=== PATIENT | female | born 1930 | race Caucasian/White ===

== ENCOUNTER 2018-07-30 07:16 | Inpatient (IN) | payer MEDICARE ==
[~2018-07-30] VITALS: Ht 162.6 cm; Wt 59.0 kg
[~2018-07-30 07:16] MED LIST: ALPRAZOLAM0.25 M1 PO; COREG12.5 MG PO; FUROSEMIDE40 MG PO; HYDRALAZINE HCL10 MG PO; ISOSORBIDE MONO20 MG PO; NITROFURANTOIN100 MG PO; RANITIDINE HCL75 MG PO; SYNTHROID75 MCG PO; TORSEMIDE20 MG PO
--- OUTSIDE RECORDS SUMMARY | 2018-07-30 07:18 | XMS REPORT | Clinical Summary ---
Author Author [facility] Address Unknown Phone Unavailable Care Team Providers Care Paper Folder Name Role Phone Jazmin Wood MD PCP Allergies Comments Active Allergy Reactions Severity Noted Date Meperidine 01/26/2017 Morphine 01/26/2017 Medications End Date Status Medication Sig Dispensed Refills Start Date Active carvedilol CR (COREG CR) Take 40 mg by 0 40 MG 24 hr capsule mouth every morning. Active hydrALAZINE (APRESOLINE) Take 10 mg by 0 10 MG tablet mouth 2 (two) times a day. Active levothyroxine (SYNTHROID, Take 75 mcg 0 LEVOXYL) 75 mcg tablet by mouth every morning. Active potassium chloride Take 10 mEq 0 (K-DUR,KLOR-CON) 10 MEQ by mouth CR tablet every morning. Active losartan (COZAAR) 50 MG Take 25 mg by 0 tablet mouth every morning. Active torsemide (DEMADEX) 20 MG Take 20 mg by 0 tablet mouth daily. Active aspirin (ECOTRIN) 81 MG Take 81 mg by 0 enteric coated tablet mouth daily. Active isosorbide mononitrate Take 10 mg by 0 (ISMO,MONOKET) 10 MG mouth 2 (two) tablet times a day. Active ranitidine (ZANTAC) 150 Take 150 mg 0 MG tablet by mouth nightly. Active traZODone (DESYREL) 50 MG Take 50 mg by 0 tablet mouth nightly. Active sertraline (ZOLOFT) 25 MG Take 25 mg by 0 tablet mouth nightly. Active levoFLOXacin (LEVAQUIN) Take 250 mg 0 250 MG tablet by mouth 9 daily. For 10 days Active atorvastatin (LIPITOR) 20 Take 20 mg by 0 MG tablet mouth nightly. Default OP ins Active benzonatate (TESSALON) Take 100 mg 0 100 MG capsule by mouth 3 (three) times a day as needed for cough. Active brompheniramine/pseudoeph Take 10 mL by 0 ed/DM (BROMFED DM ORAL) mouth daily as needed. 08/09/2018 Active ipratropium-albuterol Take 3 mL by 0 (DUO-NEB) 0.5-2.5 mg/mL nebulization 9 nebulizer every 4 (four) hours as needed for wheezing or shortness of breath for up to 30 days. 08/09/2018 Active furosemide (LASIX) 20 mg Take 2 0 tablet tablets (40 9 mg total) by mouth daily for 30 days. 08/09/2018 Active melatonin 3 mg tablet Take 1 tablet 0 (3 mg total) 9 by mouth nightly for 30 days. 04/03/2018 Discontinued isosorbide mononitrate Take 10 mg by 0 (ISMO,MONOKET) 10 MG mouth daily. tablet 11/02/2017 Discontinued torsemide (DEMADEX) 20 MG Take 20 mg by 0 tablet mouth daily. 07/10/2018 Discontinued furosemide (LASIX) 20 mg Take 20 mg by 0 tablet mouth daily as needed. 12/02/2017 acetaminophen (TYLENOL) Take 2 0 325 MG tablet tablets (650 8 mg total) by mouth every 6 (six) hours as needed for moderate pain for up to 30 days. 12/02/2017 atorvastatin (LIPITOR) 20 Take 1 tablet 30 tablet 0 201 MG tablet (20 mg total) 8 by mouth nightly for 30 days. Default OP ins 12/03/2017 losartan (COZAAR) 25 MG Take 1 tablet 30 tablet 0 tablet (25 mg total) 8 by mouth daily for 30 days. 12/02/2017 famotidine (PEPCID) 20 MG Take 1 tablet 30 tablet 0 tablet (20 mg total) 8 by mouth nightly for 30 days. 12/02/2017 sennosides-docusate Take 1 tablet 0 sodium (SENOKOT-S) 8.6-50 by mouth 2 8 mg per tablet (two) times a day as needed for constipation for up to 30 days. 12/03/2017 furosemide (LASIX) 40 mg Take 1 tablet 30 tablet 0 tablet (40 mg total) 8 by mouth daily for 30 days. 12/03/2017 aspirin (ECOTRIN) 81 MG Take 1 tablet 30 tablet 0 enteric coated tablet (81 mg total) 8 by mouth daily for 30 days. 12/02/2017 traZODone (DESYREL) 50 MG Take 1 tablet 30 tablet 0 tablet (50 mg total) 8 by mouth nightly for 30 days. 11/09/2017 levoFLOXacin (LEVAQUIN) Take 0.5 0 500 MG tablet tablets (250 8 mg total) by mouth daily for 7 days. 07/15/2018 levoFLOXacin (LEVAQUIN) Take 1 tablet 0 250 MG tablet (250 mg 9 total) by mouth daily for 5 days. Active Problems Problem Noted Date CHF (congestive heart failure) 07/08/2018 CHF exacerbation 07/06/2018 Ischemic stroke 10/30/2017 Encounters Care Team Description Date Type Specialty Willard Rodriguez MD Yerramadha, Muralidhar Reddy, MD Acute on chronic congestive heart failure, unspecified heart failure type (HCC) (Primary Dx); Acute bronchitis due to other specified organisms; Pneumonia of right middle lobe due to infectious organism (HCC); Essential hypertension, benign; CKD (chronic kidney disease) stage 3, GFR 30-59 ml/min (HCC); Ischemic stroke (HCC) 07/06/2018 [facility] General Surgery - Encounter 07/10/2018 07/06/2018 Travel Shan Woodson MD Primary osteoarthritis of both knees (Primary Dx) 04/03/2018 Office Visit Orthopedic Surgery Martha Rea MA Pain in both knees, unspecified chronicity (Primary Dx) 04/03/2018 Orders Only Orthopedic Surgery Shan Woodson MD Primary osteoarthritis of both knees (Primary Dx) 11/23/2017 Office Visit Orthopedic Surgery Abraham Saxena MD Yerramadha, Muralidhar Reddy, MD Ischemic stroke (Primary Dx); Altered mental status, unspecified altered mental status type; UTI (urinary tract infection), bacterial 10/30/2017 [facility] General Internal Medicine - Encounter 11/02/2017 Shan Woodson MD Primary osteoarthritis of both knees (Primary Dx) 09/21/2017 Office Visit Orthopedic Surgery Martha Rea MA Pain of left hip joint (Primary Dx) 09/20/2017 Orders Only Orthopedic Surgery after 07/29/2017 Family History Medical History Relation Name Comments Cancer Father Heart disease Father Stroke Father Relation Name Status Comments Father Social History Date Tobacco Use Types Packs/Day Years Used Never Smoker Smokeless Tobacco: Never Used Alcohol Use Drinks/Week oz/Week Comments No Alcohol Habits Answer Date Recorded How often do you have a drink containing alcohol? Never 07/06/2018 How many drinks containing alcohol do you have on Not asked a typical day when you are drinking? How often do you have six or more drinks on one Not asked occasion? Sex Assigned at Date Recorded Not on file Industry Job Start Date Occupation Not on file Not on file Not on file Travel End Travel History Travel Start No recent travel history available. Last Filed Vital Signs Time Taken Vital Sign Reading 07/10/2018 11:39 AM [employer] Blood Pressure 153/68 07/10/2018 11:39 AM [employer]CH[employer]IC Pulse 66 07/10/2018 11:39 AM [employer] TE[employer]ACHINE MECH[employer]IC Temperature 36.8 C (98.2 F) 07/10/2018 11:39 AM [employer] TE[employer]ACHINE [employer]CH[employer]IC Respiratory Rate 18 07/10/2018 11:39 AM [employer] TE[employer]ACHINE MECH[employer]IC Oxygen Saturation 97% - Inhaled Oxygen - Concentration 07/06/2018 2:13 PM [employer] TE[employer]CH[employer]IC Weight 54.4 kg (120 lb) 07/06/2018 2:13 PM [employer] TE[employer]INE [employer]CH[employer] Height 162.6 cm (5' 4") 07/06/2018 2:13 PM [employer]CH[employer]IC Body Mass Index 20.6 Plan of Treatment Care Team Description Date Type Specialty Shan Woodson MD [address] [facility] [address] [place], [place] [id number] 08/05/2018 Office Visit Orthopedic Surgery Health Maintenance Due Date Last Done Comments SHINGLES VACCINES (1 of 1980 2) PNEUMOCOCCAL 10/03/1995 POLYSACCHARIDE VACCINE AGE 65 AND OVER PNEUMOCOCCAL-13 10/03/1995 INFLUENZA VACCINE 01/09/2018 Procedures Comments Procedure Name Priority Date/Time Associated Diagnosis POC GLUCOSE Routine 07/10/2018 12:02 PM [employer] POC GLUCOSE Routine 07/10/2018 6:39 AM B[employer] TELL[employer]INE MECH[employer]IC ESTIMATED GFR Routine 07/10/2018 4:51 AM [employer] TE[employer] MECH[employer]IC BASIC METABOLIC PANEL Routine 07/10/2018 4:51 AM [employer] TE[employer]INE MECH[employer]IC POC GLUCOSE Routine 07/09/2018 8:37 PM [employer] TE[employer]ACHINE MECH[employer]IC POC GLUCOSE Routine 07/09/2018 4:56 PM B[employer] TE[employer]ACHINE MECH[employer]IC POC GLUCOSE Routine 07/09/2018 11:33 AM B[employer] TELL[employer] MACHINE MECHANIC ESTIMATED GFR Routine 07/09/2018 6:15 AM [employer] TE[employer]ACHINE MECH[employer]IC MAGNESIUM LEVEL Routine 07/09/2018 6:15 AM [employer] TE[employer]ACHINE MECH[employer]IC BASIC METABOLIC PANEL Routine 07/09/2018 6:15 AM B[employer] TELL[employer]ACHINE MECHANIC POC GLUCOSE Routine 07/09/2018 6:11 AM B[employer] TELL[employer] MACHINE MECHANIC POC GLUCOSE Routine 07/08/2018 9:03 PM [employer] TE[employer]ACH[employer] MECH[employer]IC ARTERIAL BLOOD GAS Routine 07/08/2018 8:45 PM [employer] TE[employer]ACHINE MECH[employer]IC XR CHEST 1 VW PORTABLE Routine 07/08/2018 8:41 PM [employer] TE[employer]ACHINE MECH[employer]IC POC GLUCOSE Routine 07/08/2018 6:19 PM [employer] TE[employer]ACHINE MECH[employer]IC ESTIMATED GFR Routine 07/08/2018 6:00 AM B[employer] TELL[employer] MACHINE MECHANIC BASIC METABOLIC PANEL Routine 07/08/2018 6:00 AM [employer] TE[employer]ACHINE MECHANIC PHOSPHORUS LEVEL Routine 07/08/2018 6:00 AM [employer] TELL[employer]ACHINE MECHANIC MAGNESIUM LEVEL Routine 07/08/2018 6:00 AM [employer] TELLER MACHINE MECHANIC CREATINE KINASE, TOTAL Routine 07/08/2018 (CPK) 6:00 AM BANK TELL[employer]ACHINE MECHANIC HC COMPLETE BLD COUNT Routine 07/08/2018 W/AUTO DIFF 6:00 AM [employer] TELL[employer]ACHINE MECH[employer]IC PROTEIN, URINE, RANDOM Routine 07/08/2018 4:30 AM BANK TELL[employer] MACHINE MECHANIC CREATININE LEVEL, URINE, Routine 07/08/2018 RANDOM 4:30 AM BANK TELL[employer]ACHINE MECHANIC SODIUM LEVEL, URINE, Routine 07/08/2018 RANDOM 4:30 AM [employer] TE[employer]ACHINE MECHANIC URINALYSIS SCREEN AND Routine 07/08/2018 MICROSCOPY, WITH REFLEX 4:30 AM BANK TELL[employer]ACHINE MECHANIC TO CULTURE URINE CULTURE Routine 07/08/2018 4:30 AM [employer]ANK TELL[employer]ACHINE MECHANIC ECHOCARDIOGRAM 2D Routine 07/07/2018 COMPLETE W MMODE SPECTRAL 3:05 PM [employer]ANK TELL[employer]ACH[employer] MECHANIC COLOR DOPPLER (24335) TROPONIN Routine 07/07/2018 6:51 AM BANK TELLER MACHINE MECHANIC ESTIMATED GFR Routine 07/07/2018 6:51 AM B[employer] TELL[employer]ACHINE MECHANIC BASIC METABOLIC PANEL Routine 07/07/2018 6:51 AM B[employer] TE[employer]ACHINE MECHANIC HC COMPLETE BLD COUNT Routine 07/07/2018 W/AUTO DIFF 6:51 AM B[employer] TE[employer]ACHINE MECH[employer]IC TROPONIN Timed 07/07/2018 2:45 AM [employer] TE[employer]INE MECH[employer]IC TROPONIN Timed 07/06/2018 10:25 PM [employer] TE[employer] MECH[employer]IC TROPONIN Timed 07/06/2018 6:34 PM B[employer] TE[employer] CT HEAD WO CONTRAST STAT 07/06/2018 4:29 PM BANK TELLER MACHINE MECHANIC XR CHEST 1 VW PORTABLE STAT 07/06/2018 3:05 PM BANK TELL[employer] MACHINE MECHANIC CREATINE KINASE, TOTAL STAT 07/06/2018 (CPK) 2:30 PM BANK TELLER MACHINE MECHANIC ESTIMATED GFR STAT 07/06/2018 2:30 PM BANK TELLER MACHINE MECHANIC B NATRIURETIC PEPTIDE STAT 07/06/2018 2:30 PM BANK TELLER MACHINE MECHANIC TROPONIN STAT 07/06/2018 2:30 PM [employer]ANK TELL[employer]ACH[employer] MECH[employer]IC COMPREHENSIVE METABOLIC STAT 07/06/2018 PANEL 2:30 PM [employer]ANK TELL[employer]ACH[employer] MECHANIC PARTIAL THROMBOPLASTIN STAT 07/06/2018 TIME (PTT) 2:30 PM [employer]ANK TELL[employer] MECH[employer]IC PROTHROMBIN TIME WITH INR STAT 07/06/2018 2:30 PM B[employer] TELL[employer]ACHINE MECHANIC HC COMPLETE BLD COUNT STAT 07/06/2018 W/AUTO DIFF 2:30 PM BANK TE[employer]ACHINE MECH[employer]IC ECG 12-LEAD STAT 07/06/2018 2:26 PM B[employer] TE[employer] MECH[employer]IC ECG ED PRELIMINARY Routine 07/06/2018 INTERPRETATION 2:15 PM [employer] TELL[employer]ACHINE MECH[employer]IC XR KNEE 3 VW BILATERAL Routine 04/03/2018 Pain in both knees, 4:08 PM CDT unspecified chronicity MS ARTHROCENTESIS Routine 04/03/2018 Primary osteoarthritis of ASPIR&/INJ MAJOR JT/BURSA 3:30 PM CDT both knees W/O US MS ARTHROCENTESIS Routine 11/23/2017 Primary osteoarthritis of ASPIR&/INJ MAJOR JT/BURSA 3:45 PM CDT both knees W/O US POC GLUCOSE Routine 11/02/2017 4:22 PM CDT POC GLUCOSE Routine 11/02/2017 11:39 AM CDT POC GLUCOSE Routine 11/02/2017 5:49 AM CDT MAGNESIUM LEVEL Routine 11/02/2017 5:05 AM CDT LIPID PANEL Routine 11/02/2017 4:45 AM CDT POC GLUCOSE Routine 11/01/2017 8:06 PM CDT POC GLUCOSE Routine 11/01/2017 4:30 PM CDT POC GLUCOSE Routine 11/01/2017 12:26 PM CDT POC GLUCOSE Routine 11/01/2017 5:47 AM CDT ZZESTIMATED GFR Routine 11/01/2017 4:45 AM CDT HC COMPLETE BLD COUNT Routine 11/01/2017 W/AUTO DIFF 4:45 AM CDT BASIC METABOLIC PANEL Routine 11/01/2017 4:45 AM CDT POC GLUCOSE Routine 10/31/2017 8:11 PM CDT POC GLUCOSE Routine 10/31/2017 4:56 PM CDT POC GLUCOSE Routine 10/31/2017 11:51 AM CDT ECHOCARDIOGRAM WITH Routine 10/31/2017 AGITATED SALINE (37145) 11:00 AM CDT US CAROTID DUPLEX Routine 10/31/2017 BILATERAL 7:40 AM CDT POC GLUCOSE Routine 10/31/2017 5:38 AM CDT VITAMIN B12 LEVEL Routine 10/31/2017 4:57 AM CDT ZZESTIMATED GFR Routine 10/31/2017 4:57 AM CDT BASIC METABOLIC PANEL Routine 10/31/2017 4:57 AM CDT HC COMPLETE BLD COUNT Routine 10/31/2017 W/AUTO DIFF 4:57 AM CDT POC GLUCOSE Routine 10/30/2017 9:59 PM CDT BLOOD CULTURE, AEROBIC & Routine 10/30/2017 ANAEROBIC 8:50 PM CDT BLOOD CULTURE, AEROBIC & Routine 10/30/2017 ANAEROBIC 8:45 PM CDT URINALYSIS SCREEN AND STAT 10/30/2017 MICROSCOPY, WITH REFLEX 3:40 PM CDT TO CULTURE GRAM STAIN STAT 10/30/2017 3:40 PM CDT URINE CULTURE STAT 10/30/2017 3:40 PM CDT ZZESTIMATED GFR STAT 10/30/2017 3:20 PM CDT B NATRIURETIC PEPTIDE STAT 10/30/2017 3:20 PM CDT TROPONIN STAT 10/30/2017 3:20 PM CDT CREATINE KINASE, TOTAL STAT 10/30/2017 (CPK) 3:20 PM CDT COMPREHENSIVE METABOLIC STAT 10/30/2017 PANEL 3:20 PM CDT HC COMPLETE BLD COUNT STAT 10/30/2017 W/AUTO DIFF 3:[address] HEAD WO CONTRAST STAT 10/30/2017 2:55 PM CDT XR CHEST 1 VW PORTABLE STAT 10/30/2017 2:27 PM CDT ECG ED PRELIMINARY Routine 10/30/2017 INTERPRETATION 2:09 PM CDT ECG 12-LEAD STAT 10/30/2017 1:52 PM CDT XR HIP 2-3 VIEWS LEFT Routine 09/21/2017 Pain of left hip joint 2:42 PM CDT after 07/29/2017 Results * POC glucose (07/10/2018 12:02 PM BANK TELL[employer]ACHINE MECHANIC) Only the most recent of 20 results within the time period is included. POC glucose 172 (H) 65 - 99 mg/dL [facility] Comment: [facility] Meter ID: [id number] [employer] Smelter: Kyle Coto Performing Organization Address City/State/Zipcode [place] [address] [place] [address] PATHOLOGY AND GENOMIC MEDICINE [facility] [address] [address] [place] [address] [facility] * Estimated GFR (07/10/2018 4:51 AM BANK TELLER MACHINE MECHANIC) Only the most recent of 5 results within the time period is included. Estimated GFR 27 (A) mL/min/1.73 m2 [facility] Comment: [facility] CatergoryUnitsInte rpretation G1 >=90 Normal or high G2 60-89Mildly decreased [id number] Mildly to moderately decreased [id number] Moderately to severely decreased G4 15-29Severely decreased G5 <15Kidney failure The eGFR was calculated using the Chronic Kidney Disease Epidemiology Collaboration (CKD-EPI) equation. Interpretation is based on recommendations of the National Kidney Foundation-Kidney Disease Outcomes Quality Initiative (NKF-KDOQI) published in 2014. Specimen Plasma specimen Performing Organization Address [facility] Phone Number [address] [place] [address] PATHOLOGY AND GENOMIC MEDICINE [address] * Basic metabolic panel (07/10/2018 4:51 AM BANK TELLER MACHINE MECHANIC) Only the most recent of 6 results within the time period is included. Sodium 141 135 - 148 mEq/L [facility] Potassium 4.4 3.5 - 5.0 mEq/L [facility] Chloride 106 98 - 112 mEq/L [facility] CO2 24 24 - 31 mEq/L [facility] Anion gap 11@ANIO 7 - 15 mEq/L [facility] BUN 50 (H) 8 - 23 mg/dL [facility] Creatinine 1.70 (H) 0.50 - 0.90 mg/dL [facility] Glucose 140 (H) 65 - 99 mg/dL [facility] Calcium 8.7 (L) 8.8 - 10.2 mg/dL [facility] Specimen Plasma specimen Performing Organization Address [facility] Phone Number [address] [place] [address] PATHOLOGY AND [facility] MEDICINE [address] * Magnesium level (07/09/2018 6:15 AM BANK TELLER MACHINE MECHANIC) Only the most recent of 3 results within the time period is included. Magnesium 2.0 1.6 - 2.4 mg/dL [facility] Specimen Plasma specimen Performing Organization Address [facility] Phone Number [address] [place] [address] PATHOLOGY AND GENOMIC MEDICINE [address] [place] [address] [facility] * Arterial blood gas (07/08/2018 8:45 PM BANK TELLER MACHINE MECHANIC) pH, arterial 7.42 7.35 - 7.45 [facility] pCO2, arterial 40 35 - 45 mmHg [facility] pO2, arterial 74 (L) 80 - 90 mmHg [facility] Bicarbonate, arterial 25.8 21.0 - 28.0 mmol/L [facility] Base excess, arterial 2 -2 - 2 mEq/L [facility] O2 saturation, arterial 96 95 - 100 % [facility] FiO2, inspired O2% 50 % [facility] Specimen Blood Performing Organization Address City/[facility]/Zipcode Phone Number [facility] DEPARTMENT OF [address] [place] [address] [place] [address] PATHOLOGY AND GENOMIC MEDICINE [address] [place], [place] [id number] [place] [address] * XR Chest 1 Vw Portable (07/08/2018 8:41 PM BANK TELLER MACHINE MECHANIC) Only the most recent of 3 results within the time period is included. Narrative Performed At Study:XR CHEST 1 VW PORTABLE RADIANT History: sob COMPARISON: October 30, 2017 IMPRESSION: A single view of the chest.Small left pleural effusion and left lower lobe consolidation or atelectasis present. No pneumothorax. There is streaky airspace opacities in the left perihilar region.Cardiac silhouette is enlarged.Visualized osseous structures areno acute abnormality. [facility]-[id number] Procedure Note Hm Interface, Radiology Results Incoming - 07/08/2018 11:23 PM BANK TELL[employer]ACHINE MECHANIC Study:XR CHEST 1 VW PORTABLE History: sob COMPARISON: October 30, 2017 IMPRESSION: A single view of the chest. Small left pleural effusion and left lower lobe consolidation or atelectasis present. No pneumothorax. There is streaky airspace opacities in the left perihilar region. Cardiac silhouette is enlarged. Visualized osseous structures are no acute abnormality. [facility]-[id number] Performing Organization Address City/[facility]/Zipcode Phone Number [facility] [address] [place] [address] * CBC with platelet and differential (07/08/2018 6:00 AM BANK TELLER MACHINE MECHANIC) Only the most recent of 6 results within the time period is included. WBC 8.70 4.50 - 11.00 k/uL [facility] RBC 2.68 (L) 4.20 - 5.50 m/uL [facility] HGB 8.6 (L) 12.0 - 16.0 g/dL [facility] HCT 27.7 (L) 37.0 - 47.0 % [facility] MCV 103.4 (H) 82.0 - 100.0 fL [facility] MCH 32.1 27.0 - 34.0 pg [facility] MCHC 31.0 31.0 - 37.0 g/dL [facility] RDW - SD 47.5 37.0 - 55.0 fL [facility] MPV 8.1 (L) 8.8 - 13.2 fL [facility] Platelet count 148 (L) 150 - 400 k/uL [facility] Nucleated RBC 0.00 /100 WBC [facility] Neutrophils 82.0 (H) 39.0 - 69.0 % [facility] Lymphocytes 5.7 (L) 25.0 - 45.0 % [facility] Monocytes 11.4 (H) 0.0 - 10.0 % [facility] Eosinophils 0.1 0.0 - 5.0 % [facility] Basophils 0.2 0.0 - 1.0 % [facility] Specimen Blood Performing Organization Address City/[facility] Phone Number [address] [place] [address] PATHOLOGY AND GENOMIC MEDICINE [address] * Phosphorus level (07/08/2018 6:00 AM BANK TELLER MACHINE MECHANIC) Phosphorus 3.1 2.4 - 4.5 mg/dL [facility] Specimen Plasma specimen Performing Organization Address City/[facility] Phone Number [address] [place] [address] PATHOLOGY AND GENOMIC MEDICINE [address] * Creatine kinase, total (CPK) (07/08/2018 6:00 AM BANK TELLER MACHINE MECHANIC) Only the most recent of 3 results within the time period is included. Creatine kinase 125 26 - 192 U/L [facility] Specimen Plasma specimen Performing Organization Address [facility] Phone Number [address] [place] [address] PATHOLOGY AND GENOMIC MEDICINE [address] * Urinalysis screen and microscopy, with reflex to culture (07/08/2018 4:30 AM BANK TELLER MACHINE MECHANIC) Only the most recent of 2 results within the time period is included. Specimen site Clean catch [facility] Color, UA Yellow [facility] Appearance, UA Clear [facility] Specific gravity, UA 1.011 1.001 - 1.035 [facility] pH, UA 5.0 5.0 - 8.5 [facility] Protein, UA Negative Negative [facility] Glucose, UA Negative Negative [facility] Ketones, UA Negative Negative [facility] Bilirubin, UA Negative Negative [facility] Blood, UA Negative Negative [facility] Nitrite, UA Negative Negative [facility] Urobilinogen, UA Negative <2.0 [facility] Leukocyte esterase, UA Negative Negative [facility] Epithelial cells, UA Few /HPF [facility] WBC, UA 0-5 0 - 4 /HPF [facility] RBC, UA 0-5 0 - 5 /HPF [facility] Bacteria, UA None seen None seen [facility] Yeast, UA None seen [facility] Yeast with pseudohyphae, None seen [facility] Hyaline casts, UA 3-5 /LPF [facility] Specimen Urine Performing Organization Address [facility] Phone Number [facility] [address] [place] [address] PATHOLOGY AND GENOMIC [address] [place] [address] * Sodium level, urine, random (07/08/2018 4:30 AM BANK TELLER MACHINE MECHANIC) Sodium, urine, random 54 mEq/L [facility] Specimen Urine Performing Organization Address City/[facility] Phone Number [address] [place] [address] PATHOLOGY AND GENOMIC MEDICINE [address] * Protein, urine, random (07/08/2018 4:30 AM BANK TELLER MACHINE MECHANIC) Protein, urine random 16 mg/dL [facility] Specimen Urine Performing Organization Address [facility] Phone Number [address] [place] [address] PATHOLOGY AND [address] * Creatinine level, urine, random (07/08/2018 4:30 AM BANK TELLER MACHINE MECHANIC) Creatinine, urine, random 73 mg/dL [facility] Specimen Urine Performing Organization Address [facility] Phone Number [address] [place] [address] PATHOLOGY AND [address] * Urine culture (07/08/2018 4:30 AM BANK TELLER MACHINE MECHANIC) Only the most recent of 2 results within the time period is included. Urine culture SEE COMMENTComment: [facility] Bacteriuria screen negative. [facility] Specimen Urine Performing Organization Address [facility] Phone Number [address] [place] [address] PATHOLOGY AND [facility] MEDICINE [address] * Echocardiogram complete w contrast and 3D if needed (07/07/2018 3:05 PM BANK TELLER MACHINE MECHANIC) AoV Area, Vmax 2.20 cm2 [facility] AoV Area, VTI 2.49 cm2 [facility] AoV Mean PG 4.45 mmHg [facility] AoV Peak PG 8.59 mmHg [facility] AoV Vmax 1.47 m/s [facility] AoV VTI 0.25 m [facility] IVS,d 1.10 cm [facility] LV,d 5.01 cm [facility] LV EF,A2C 29.60 % [facility] LV EF,A4C 46.60 % [facility] LV EF,BP 38.77 % [facility] Gustavo Austin,d A2C 8.02 cm [facility] Gustavo Austin,d A4C 8.52 cm [facility] Gustavo Austin,s A2C 7.49 cm [facility] Gustavo Austin,s A4C 7.93 cm [facility] LV,s 4.14 cm [facility] LV SV,A2C 30.51 % [facility] LV SV,A4C 50.23 % [facility] LV Vol,d A2C 103.07 mL [facility] LV Vol,d A4C 107.80 ml [facility] LV Vol,d BP 108.52 ml [facility] LV Vol,s A2C 72.56 mL [facility] LV Vol,s A4C 57.57 ml [facility] LV Vol,s BP 66.44 nl [facility] LVOT Diam,S 1.87 cm [facility] LVOT Vmax 1.17 m/s [facility] LVOT VTI 0.22 m [facility] LVPWD,d 0.96 cm [facility] TR Vpeak 3.88 mm/s [facility] MV E A ratio 1.54 [facility] TR pk grad 51.14 mmHg [facility] MR Vmax 5.59 m/s [facility] MR peak grad 109.38 mmHg [facility] E wave decelartion time 189.93 msec [facility] MV Peak A Shadi 0.90 m/s [facility] MV valve area p 1/2 4.09 cm2 [facility] method MV Peak E Shadi 1.39 m/s [facility] MV stenosis pressure 1/2 53.82 ms [facility] time AV LVOT peak gradient 5.52 mmHg [facility] LV SYS VOL 75.82 ml [facility] LV FOSTER VOL 118.60 ml [facility] LA area s A4C 28.62 cm2 [facility] LV SV Teich 2D 42.77 ml [facility] LVOT SI 39.03 ml/m2 [facility] AoV Cusp sep 1.72 [facility] AoV Vmn 1.00 [facility] IVS s 2D 1.21 [facility] LA Ao Ratio Mmode 1.77 [facility] LVOT Vmn 0.77 [facility] Pt Size 162.56 [facility] Pt Wt 54.43 [facility] PV AT 82.78 msec [facility] LVOT mean grad 2.71 mmHg [facility] LVPW s PLAX 1.29 cm [facility] MV Decel slope 7.32 m/s2 [facility] Velocity Ratio (V1/V2) 0.80 m/s [facility] EF 36.07 % [facility] E/A ratio 1.54 [facility] LVOT area 2.75 cm2 [facility] LA volume 78.00 cm3 [facility] LA Area d A4C 97 cm2 [facility] RA pressure 5.00 mmHg [facility] RVSP 65.19 mmHg [facility] LA diam s 5.30 cm [facility] Aortic Root 2.97 cm [facility] D E excurs 0.70 [facility] E f slope 0.02 [facility] E prime lat 0.03 [facility] E carlos sept 0.04 [facility] PV acc T slope 12.70 [facility] Narrative Performed At [facility] Left ventricular systolic function is moderately impaired. Left Ventricular ejection fraction is 35 - 40%. Global right ventricle systolic function is mildly reduced. The mitral valve appears thickened. There is moderate mitral valve regurgitation. Moderate tricuspid valve regurgitation. Spectral Doppler shows impaired relaxation pattern of left ventricular diastolic filling. Severely elevated pulmonary artery systolic pressure. RA pressure is normal. RVSP is 65 mmHg. Performing Organization Address [facility]/Referlycode Phone Number [facility] [address] [place] [address] * Troponin (07/07/2018 6:51 AM BANK TELLER MACHINE MECHANIC) Only the most recent of 6 results within the time period is included. Troponin <0.300 0.000 - 0.300 ng/mL AMANUEL MANDAEN Comment: [facility] 0.30 - 1.49 ng/mlMay indicate increased risk of acute coronary syndrome. >=1.5 ng/ml Consistent with acute myocardial infarction. The diagnostic value of a single normal or non-diagnostic result is questionable.Serial samples at 2-6 hour intervals are required to rule out acute myocardial injury. Specimen Plasma specimen Performing Organization Address City/[facility] Cent[facility]ode Phone Number [facility] [place] [address] [place] [address] PATHOLOGY AND GENOMIC MEDICINE [facility] [address] [place] [address] [facility] * CT Head Wo Contrast (07/06/2018 4:29 PM BANK TELLER MACHINE MECHANIC) Only the most recent of 2 results within the time period is included. Narrative Performed At Study: CT HEAD WO CONTRAST [facility] History:Altered level of consciousness (LOC)unexplained COMPARISON:October 30, 2017 TECHNIQUE: Multiple axial CT images of the head obtained without IV contrast. CT imaging was performed with iterative reconstruction technique and/or automated exposure control to reduce radiation dose. FINDINGS: Parenchymal volume is mildly diffusely decreased similar to the prior exam. Focal encephalomalacia present in the right frontal lobe and anterior right insula.. There are changes of chronic small vessel ischemic disease There is no acute hemorrhage, midline shift, hydrocephalus, edema, or extra-axial collections. . Hyperdense opacification of the left sphenoid and bilateral maxillary sinuses as well as scattered ethmoid sinuses and right frontal sinus similar to the prior exam.The mastoid air cells are well aerated. No destructive calvarial lesions are seen. The visualized orbits are unremarkable. IMPRESSION: No acute intracranial abnormality. Stable significant paranasal sinus disease. [id number] Procedure Note Interface, Radiology Results Incoming - 07/06/2018 4:40 PM BANK TELLER MACHINE MECHANIC Study: CT HEAD WO CONTRAST History:Altered level of consciousness (LOC) unexplained COMPARISON:October 30, 2017 TECHNIQUE: Multiple axial CT images of the head obtained without IV contrast. CT imaging was performed with iterative reconstruction technique and/or automated exposure control to reduce radiation dose. FINDINGS: Parenchymal volume is mildly diffusely decreased similar to the prior exam. Focal encephalomalacia present in the right frontal lobe and anterior right insula.. There are changes of chronic small vessel ischemic disease There is no acute hemorrhage, midline shift, hydrocephalus, edema, or extra-axial collections. . Hyperdense opacification of the left sphenoid and bilateral maxillary sinuses as well as scattered ethmoid sinuses and right frontal sinus similar to the prior exam. The mastoid air cells are well aerated. No destructive calvarial lesions are seen. The visualized orbits are unremarkable. IMPRESSION: No acute intracranial abnormality. Stable significant paranasal sinus disease. [id number] Performing Organization Address City/State/Zipcode Phone Number [facility] [address] [place] [address] * Partial thromboplastin time, activated (07/06/2018 2:30 PM BANK TELLER MACHINE MECHANIC) PTT 42.1 (H) 23.0 - 36.0 sec [facility] Comment: [facility] PTT therapeutic range for unfractionated heparin is 61.0-112.0 seconds which corresponds to Anti-Xa 0.3-0.7 U/ml. Specimen Blood Performing Organization Address [facility] Centercode Phone Number [address] [place] [address] PATHOLOGY AND GENOMIC MEDICINE [address] * Prothrombin time with INR (07/06/2018 2:30 PM BANK TELLER MACHINE MECHANIC) Prothrombin time 14.7 (H) 11.5 - 14.5 sec [facility] INR 1.2 [facility] Comment: [facility] The International Normalized Ratio (INR) is a therapeutic monitoring tool for patients who are stable on oral anticoagulant therapy. An INR of 2.0-3.0 is suggested for deep vein thrombosis/pulmonary embolism. Specimen Blood Performing Organization Address [facility] Phone Number [address] [place] [address] PATHOLOG[address] * B natriuretic peptide (07/06/2018 2:30 PM BANK TELLER MACHINE MECHANIC) Only the most recent of 2 results within the time period is included. BNP 3,221 (H) 0 - 100 pg/mL [facility] Specimen Blood Performing Organization Address [facility] Cent[facility]ode Phone Number [facility] DEPARTMENT OF [address] [place] [address] [place] [address] PATHOLOGY AND GENOMIC MEDICINE [address] * Comprehensive metabolic panel (07/06/2018 2:30 PM BANK TELLER MACHINE MECHANIC) Only the most recent of 2 results within the time period is included. Sodium 139 135 - 148 mEq/L [facility] Potassium 4.3 3.5 - 5.0 mEq/L [facility] Chloride 103 98 - 112 mEq/L [facility] CO2 22 (L) 24 - 31 mEq/L [facility] Anion gap 14@ANIO 7 - 15 mEq/L [facility] BUN 31 (H) 8 - 23 mg/dL [facility] Creatinine 1.90 (H) 0.50 - 0.90 mg/dL [facility] Glucose 154 (H) 65 - 99 mg/dL [facility] Calcium 9.2 8.8 - 10.2 mg/dL [facility] Protein 6.7 6.3 - 8.3 g/dL [facility] Comment: [facility] [place] 4.6-7.0 g/dL 1 week 4.4-7.6 g/dL 7 months-1year 5.1-7.3 g/dL 1-2 years5.6-7 .5 g/dL >3 years6.0-8 .0 g/dL 18-150 6.3-8.3 g/dL Albumin 3.5 3.5 - 5.0 g/dL [facility] A/G ratio 1.1 0.7 - 3.8 [facility] Alkaline phosphatase 71 35 - 104 U/L [facility] AST 29 10 - 35 U/L [facility] ALT 14 5 - 50 U/L [facility] Total bilirubin 0.6 0.0 - 1.2 mg/dL [facility] Specimen Plasma specimen Performing Organization Address City/State/Zipcode [place] [address] [place] [address] PATHOLOGY AND GENOMIC MEDICINE [facility] [address] * ECG 12 lead (07/06/2018 2:26 PM BANK TELLER MACHINE MECHANIC) Only the most recent of 2 results within the time period is included. Ventricular rate 69 [facility] Atrial rate 69 [facility] QRSD interval 166 [facility] QT interval 480 [facility] QTC interval 514 [facility] QRS axis 1 -24 [facility] T wave axis 152 [facility] EKG impression Sinus rhythm with 1st degree [facility] AV block-Left bundle branch block-Abnormal ECG-In automated comparison with ECG of 30-OCT-2017 13:52,-MS interval has decreased-QT has lengthened- Narrative Performed At Performing Organization Address [facility] Centercoia Phone Number [facility] MUSE [address] [place] [address] * ECG ED Preliminary Interpretation - Not an Order (07/06/2018 2:15 PM BANK TELLER MACHINE MECHANIC) Only the most recent of 2 results within the time period is included. Narrative Performed At Willard Rodriguez MD 07/06/20183:55 PM ECG ED Preliminary Interpretation - Not an Order Performed by: Willard Rodriguez MD Authorized by: Willard Rodriguez MD ECG reviewed by ED Physician in the absence of a mica machine operator: yes Interpretation: Interpretation: abnormal Rate: ECG rate:69 ECG rate assessment: normal Rhythm: Rhythm: A-V block Conduction: Conduction: abnormal Abnormal conduction: complete LBBB and 1st degree ST segments: ST segments:Normal T waves: T waves: normal * XR Knee 3 Vw Bilateral (04/03/2018 4:08 PM CDT) Narrative Performed At [facility] Bilateral knee x-rays right and left knee 3 views standing AP lateral sunrise view 04/03/2018: X-rays confirm advanced arthritis in medial compartment of both knees with significant narrowing there is increased sclerosis of the medial femoral condyle flattening with some spur formation. There is end-stage arthritis and patellofemoral compartment of both knees with severe narrowing of the lateral facet. There is moderate arthritis and lateral compartment as well with some mild to moderate narrowing. Tricompartmental osteoarthritis. Performing Organization Address [facility] Cent[facility]ode Phone Number [facility] [address] [place] [address] * Large Joint Arthrocentesis (04/03/2018 3:30 PM CDT) Narrative Performed At Shan Woodson MD 04/04/2018 12:37 AM Large Joint Arthrocentesis Consent given by: patient Supporting Documentation Indications: pain and joint swelling Procedure Details Preparation: Patient was prepped and draped in the usual sterile fashion Ultrasound guided: no Platelet Rich Plasma Used: no PRP Used Location: knee - Bilateral knee Right side: Needle size: 20 G Approach: lateral Right knee medications administered: 80 mg methylPREDNISolone acetate 80 mg/mL; 5 mL lidocaine 10 mg/mL (1 %) Aspirate amount: 5 mL Aspirate: clear, serous and yellow Patient tolerance: patient tolerated the procedure well with no immediate complications Left side: Needle size: 20 G Approach: lateral Left knee medications administered: 80 mg methylPREDNISolone acetate 80 mg/mL; 5 mL triamcinolone acetonide 40 mg/mL; 5 mL lidocaine 10 mg/mL (1 %) Aspirate amount: 30 mL Aspirate: clear, serous and yellow Patient tolerance: patient tolerated the procedure well with no immediate complications * Large Joint Arthrocentesis (11/23/2017 3:45 PM CDT) Narrative Performed At Shan Woodson MD 11/23/20174:51 PM Large Joint Arthrocentesis Consent given by: patient Timeout: Immediately prior to procedure a time out was called to verify the correct patient, procedure, equipment, unit support representative and site/side marked as required Supporting Documentation Indications: pain and joint swelling Procedure Details Preparation: Patient was prepped and draped in the usual sterile fashion Ultrasound guided: no Platelet Rich Plasma Used: no PRP Used Location: knee - Bilateral knee Right side: Needle size: 20 G Approach: lateral Right knee medications administered: 80 mg methylPREDNISolone acetate 80 mg/mL; 5 mL lidocaine 10 mg/mL (1 %) Aspirate amount: 0 mL Patient tolerance: patient tolerated the procedure well with no immediate complications Left side: Needle size: 20 G Approach: lateral Left knee medications administered: 80 mg methylPREDNISolone acetate 80 mg/mL; 5 mL lidocaine 10 mg/mL (1 %) Aspirate amount: 0 mL Patient tolerance: patient tolerated the procedure well with no immediate complications * Lipid panel (11/02/2017 4:45 AM CDT) Cholesterol 172 <200 mg/dL [facility] DEPARTMENT OF PATHOLOGY AND GENOMIC MEDICINE Triglycerides 114 <150 mg/dL [facility] DEPARTMENT OF PATHOLOGY AND GENOMIC MEDICINE HDL cholesterol 44 >40 mg/dL [facility] DEPARTMENT OF PATHOLOGY AND GENOMIC MEDICINE LDL cholesterol 112 (H)Comment: Result <100 mg/dL [facility] DEPARTMENT OF obtained by direct LDL PATHOLOGY AND measurement GENOMIC MEDICINE [facility] interpretation Comment: PATHOLOGY AND Total Cholesterol GENOMIC MEDICINE (mg/dL) <200 Desirable 200-239Borderline -high >=240High Triglycerides (mg/dL) <150 Normal 150-199Borderline -high 200-499High >=500Very high HDL Cholesterol (mg/dL) <40Low (male) <40Low (female) LDL Cholesterol (mg/dL) <100 Optimal 100-129Near or above optimal 130-159Borderline -high 160-189High >=190Very high Risk Catergories that modify LDL goals. Risk Catergories LDL goal (mg/dL) CHD and CHD risk equivalent<100 (10-year risk >20%) Multiple (2+) risk factors <130 (10-year risk=<20%) 0-1 risk factors <160 (<10-year risk) Defining levels of lipids in metabolic syndrome Triglycerides >=150 mg/dL HDL Cholesterol Men <40 mg/dL Women <40 mg/dL Non-HDL cholesterol is a second target for therapy in persons with high triglycerides (>=200 mg/dL) Specimen Plasma specimen Performing Organization Address [facility] Phone Number [address] [place] [address] PATHOLOGY AND PWA MEDICINE * Estimated GFR (11/01/2017 4:45 AM CDT) Only the most recent of 3 results within the time period is included. GFR Non Af Amer 28 (A) mL/min/1.73 m2 [facility] DEPARTMENT OF PATHOLOGY AND GENOMIC MEDICINE GFR Af Amer 34 (A) mL/min/1.73 m2 [facility] DEPARTMENT OF Comment: PATHOLOGY AND Chronic kidney disease: <60 GENOMIC MEDICINE mL/min/1.73m2 Kidney failure: <15 mL/min/1.73m2 The estimated GFR is calculated from the IDMS-traceable Modification of Diet in Renal Disease Equation. The accuracy of the calculation is poor when the creatinine is normal. Calculated values >90 mL/min/1.73m2 are not reported. This equation has not been validated in children (<18 years), women, the elderly (>70 years), or ethnic groups other than Caucasians and Americans. Specimen Plasma specimen Performing Organization Address [facility] Cent[facility]ode Phone Number [address] [place] [address] PATHOLOGY AND GENOMIC MEDICINE * Echocardiogram complete w contrast and 3D if needed (10/31/2017 11:00 AM CDT) BSA 1.55 m2 [facility] Velocity Ratio (V1/V2) 0.66 m/s [facility] IVS,d 1.21 (A) 0.6 - 1.2 cm [facility] EF 20.79 % [facility] LA volume 66.0 cm3 [facility] LVPWD,d 1.03 cm [facility] AoV Mean PG 6.14 mmHg [facility] AV LVOT peak gradient 5.23 mmHg [facility] MV valve area p 1/2 3.77 cm2 [facility] method E/A ratio 1.06 [facility] E wave decelartion time 201.00 msec [facility] LVOT Diam,S 1.80 cm [facility] LVOT area 2.54 cm2 [facility] LVOT Vmax 1.14 m/s [facility] LVOT VTI 0.20 m [facility] AoV Peak PG 12.02 mmHg [facility] MV Peak E Shadi 0.92 m/s [facility] MV stenosis pressure 1/2 58.29 ms [facility] time MV Peak A Shadi 0.87 m/s [facility] LV Vol,s A2C 67.17 mL [facility] LV Systolic Volume Index 43.34 mL/m2 [facility] LV Vol,d A2C 90.17 mL [facility] LV Diastolic Volume Index 58.17 mL/m2 [facility] LA Volume Index 42.58 mL/m2 [facility] AoV Area, Vmax 1.67 cm2 [facility] AoV Area, VTI 1.65 cm2 [facility] AoV Vmax 1.73 m/s [facility] BSA Artis 1.54 m2 [facility] BSA [place] 1.53 m2 [facility] IVS/LVPW,2D 1.18 [facility] LA Area d A4C 117 cm2 [facility] LV,d 4.80 cm [facility] LV,s 4.34 cm [facility] LV Vol,d A4C 120.89 ml [facility] LV Vol,s A4C 88.11 ml [facility] TR Vpeak 2.92 mm/s [facility] BMI 19.74 kg/m2 [facility] MV E A ratio 1.06 mmHg [facility] RA pressure 5.00 mmHg [facility] TR pk grad 27.88 mmHg [facility] AoV area i VTI BSA [place] 1.07 cm2/m2 [facility] MR peak grad 79.79 mmHg [facility] RVSP 39.12 mmHg [facility] AR Press Half Time 857.15 ms [facility] LV SYS VOL 85.03 ml [facility] LV FOSTER VOL 107.35 ml [facility] LA diam s 5.20 cm [facility] LV SI Teich 2D 14.43 ml/m2 [facility] LV SV Teich 2D 22.32 ml [facility] LV Vol s Teich PSAX 85.03 ml [facility] LVOT SI 32.11 ml/m2 [facility] AoV Cusp sep 1.95 [facility] Aortic Root 3.10 cm [facility] AoV Vmn 1.18 [facility] AR slope 1.13 [facility] Ar Vmax 3.33 [facility] IVS s 2D 1.31 [facility] LA Ao Ratio Mmode 1.69 [facility] LV FS Cube 2D 9.46 [facility] LV FS Teich 2D 9.46 [facility] AR maxPG 44.32 [facility] D E excurs 1.00 [facility] E f slope 0.02 [facility] E prime lat 0.05 [facility] E carlos sept 0.04 [facility] PV acc T slope 12.60 [facility] IVC diam 13.01 cm [facility] PV AT 103.81 msec [facility] AoV VTI 0.30 m [facility] LV EF,2D 25.78 % [facility] LV EF,A2C 25.50 % [facility] LV EF,A4C 27.11 % [facility] LV EF,BP 27.74 % [facility] Gustavo Austin,d A2C 7.88 cm [facility] Gustavo Austin,d A4C 8.64 cm [facility] Gustavo Austin,s A2C 7.18 cm [facility] Gustavo Austin,s A4C 7.64 cm [facility] LV SV,A2C 23.00 % [facility] LV SV,A4C 32.78 % [facility] LV SV,BP 30.16 % [facility] LV Vol,d BP 108.72 ml [facility] LV Vol,s BP 78.56 nl [facility] LV SI MOD BP BSA Derrick 19.51 ml/m2 [facility] LV Vol Index s bpmod BSA 70.32 ml/m2 [facility] Derrick PV Vmn 50.81 m/s [facility] MR Vmax 4.47 m/s [facility] MV AE ratio 0.95 [facility] LVOT Vmn 0.70 [facility] Pt Size 162.56 [facility] Pt Wt 52.16 [facility] Aov area Vmn 1.50 cm2 [facility] LVOT mean grad 2.36 mmHg [facility] AoV area I VMN bsa 0.97 cm2/m2 [facility] AR DT 2,955.69 msec [facility] AR pk grad 44.32 mmHg [facility] IVS pct thck PLAX 7.70 % [facility] LV SI Cube 2D 18.41 ml/m2 [facility] LV SV Cube 2D 28.46 ml [facility] LV vol d cube 2D 110.37 ml [facility] LV vol s cube 2D 81.91 ml [facility] LVPW pct thck PLAX 17.92 % [facility] LVPW s PLAX 1.21 cm [facility] MV Decel slope 4.56 m/s2 [facility] Narrative Performed At [facility] Bubble study performed. The left ventricle chamber size is normal. Left ventricular systolic function severely impaired. Left Ventricular ejection fraction is 20 - 25%. Left atrium size is moderately dilated. There is pericardial effusion. The mitral valve appears calcified. There is mild mitral valve regurgitation. Spectral Doppler shows pseudonormal pattern of left ventricular diastolic filling. Mildly elevated pulmonary artery systolic pressure. Performing Organization Address City/State/[place]ia Phone Number [facility] [address] [place] [address] * PV carotid duplex (10/31/2017 7:40 AM CDT) L CCA Prox 15.3 cm/s cm/s [facility] L CCA Prox 79 cm/s cm/s [facility] R CCA Mid 7.60 cm/s cm/s [facility] R CCA Mid 71.30 cm/s cm/s [facility] L CCA Mid 9.80 cm/s cm/s [facility] L CCA Mid 66.90 cm/s cm/s [facility] L ECA Prox 5.00 cm/s cm/s [facility] L ECA Prox 106 cm/s cm/s [facility] R ECA Prox 6.30 cm/s cm/s [facility] L ICA Prox 10.9 cm/s cm/s [facility] L ICA Prox 73.5 cm/s cm/s [facility] R ICA Prox 7.6 cm/s cm/s [facility] R ICA Prox 62.5 cm/s cm/s [facility] L ICA/CCA Ratio 1.8 cm/s [facility] R ICA/CCA Ratio 1.4 cm/s [facility] L CCA Max 79.00 cm/s cm/s [facility] R CCA Max 71.30 cm/s cm/s [facility] L ICA Max 139.80 cm/s cm/s [facility] R ICA Max 100.00 cm/s cm/s [facility] R CCA Prox 8.7 cm/s cm/s [facility] R CCA Prox 62.5 cm/s cm/s [facility] R ICA Dist 22.5 cm/s cm/s [facility] R ICA Mid 16.4 cm/s cm/s [facility] L ICA Dist 21.9 cm/s cm/s [facility] L ICA DIST 98.2 cm/s cm/s [facility] R Car Bulb 74.60 cm/s cm/s [facility] R CCA Dist 9.8 cm/s cm/s [facility] R CCA Dist 61.4 cm/s cm/s [facility] R Vert Art 14.20 cm/s cm/s [facility] L Car Bulb 6.50 cm/s cm/s [facility] L Car Bulb 79.00 cm/s cm/s [facility] R Car Bulb 7.60 cm/s cm/s [facility] L CCA Dist 9.8 cm/s cm/s [facility] L CCA Dist 55.9 cm/s cm/s [facility] R ECA Prox 95.10 cm/s cm/s [facility] L ICA Mid 23.5 cm/s cm/s [facility] L ICA Mid 139.8 cm/s cm/s [facility] R ICA Dist 100 cm/s cm/s [facility] R ICA Mid 82.3 cm/s cm/s [facility] L Vert Art 11.30 cm/s cm/s [facility] L Vert Art 61 cm/s cm/s [facility] R Vert Art 71.30 cm/s cm/s [facility] Narrative Performed At [facility] There is less than 50% stenosis of the internal carotid artery bilaterally. Performing Organization Address [facility]/Zipcode Phone Number [facility] [address] [place] [address] * Vitamin B12 level (10/31/2017 4:57 AM CDT) Vitamin B12 723 211 - 946 pg/mL [facility] DEPARTMENT OF Comment: PATHOLOGY AND Significant overlap exists GENOMIC MEDICINE between normal and deficiency states. However, most patients with deficiencies will have Serum B12 <200 pg/mL. Specimen Serum Performing Organization Address [facility]/Zipcode Phone Number [facility] DE[place]MENT [place] [id number] [place] [address] [place] [address] PATHOLOGY AND GENOMIC MEDICINE * Blood culture, aerobic & anaerobic (10/30/2017 8:50 PM CDT) Only the most recent of 2 results within the time period is included. Blood culture isolate No growth after 5 days of [facility] DEPARTMENT OF incubation. PATHOLOGY AND Comment: GENOMIC MEDICINE Specimen Information Specimen Source: Blood Specimen Site: Arm, right Specimen Blood - Arm, right Performing Organization Address [facility]/Zipcode Phone Number [facility] DEPARTMENT OF [address] [place] [address] PATHOLOGY AND GENOMIC MEDICINE * Gram stain (10/30/2017 3:40 PM CDT) Gram stain result Few WBC's [facility] DEPARTMENT OF Few Gram positive rods PATHOLOGY AND Comment: GENOMIC MEDICINE Specimen Information Specimen Source: Urine Specimen Site: Clean catch Specimen Urine Performing Organization Address [facility]/Zipcode Phone Number [facility] DEPARTMENT OF [address] [place], [place] [address] PATHOLOGY AND GENOMIC MEDICINE * XR Hip 2-3 View Left (09/21/2017 2:42 PM CDT) Narrative Performed At [facility] X-rays left hip 2 views AP pelvis lateral left hip 09/21/2017: 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 Performing Organization Address City/[facility]/Zipcode Phone Number [facility] [phone] [place] [address] after 07/29/2017 Insurance Payer Benefit Subscriber ID Type Phone Address Plan / Group UHC MEDICARE UHC xxxxxxxxx [facility] MEDICARE COMPLETE Advance Directives Patient has advance care planning documents, and code status on file. For more i nformation, please contact: Amanuel Roberts [address] [place] [address] Date Inactivated Comments Code Status Date Activated 07/10/2018 6:47 PM Full Code 07/06/2018 6:52 PM Code Status decision reached by: Patient 11/02/2017 11:15 PM DNR 11/01/2017 10:15 AM Code Status decision reached by: Patient by means of Directive
--- OUTSIDE RECORDS SUMMARY | 2018-07-30 07:19 | XMS REPORT ---
Author [facility] Address Unknown Phone Unavailable Care Team Providers Care Trim Crew Supervisor Name Role Phone Wayne AGUILAR Unavailable Unavailable Problems This patient has no known problems. Allergies, Adverse Reactions, Alerts This patient has no known allergies or adverse reactions. Medications This patient has no known medications. Results Test Description Test Time Test Comments Text Results Atomic Results Result Comments CHEST SINGLE (PORTABLE) [place] [address] Patient Name: SHANNON LEACH MR #: [id number] : 1930 Age/Sex: 86/F Req #: [id number] [facility] Physician: NOE AGUILAR MD Ordered by: MARIAN RAMOS MD Report #: [id number] Location: MED/SURG Room/Bed: [facility] Procedure: [id number] DX/CHEST SINGLE (PORTABLE) Exam Date: 04/18/17 Exam Time: 0525 REPORT STATUS: Signed EXAMINATION: CHEST SINGLE (PORTABLE) INDICATION: CHF. COMPARISON: 04/17/2017 FINDINGS: TUBES and LINES: None. LUNGS: Lungs are not well inflated. Lungs are clear. There is mild prominence of the central pulmonary vasculature, consistent with pulmonary venous congestion. PLEURA: Trace of left pleural effusion present. HEART AND MEDIASTINUM: Cardiac size is moderately enlarged. There are atherosclerotic calcifications within the aorta. BONES AND SOFT TISSUES: No acute osseous lesion. Soft tissues are unremarkable. UPPER ABDOMEN: No free air under the diaphragm. IMPRESSION: Moderate enlargement of the heart without evidence of decompensation. Central basilar congestion is present. Signed by: Dr. Mahad Padilla M.D. on 04/18/2017 6:36 AM Dictated By: MAHAD GASTELUM MD 5 Transcribed By: PEPE on 04/18/17635 COPY TO: MARIAN RAMOS MD CHEST SINGLE (PORTABLE) [place] [address] Patient Name: SHANNON LEACH MR #: [id number] : 1930 Age/Sex: 86/F Req #: [id number] Adm Physician: Ordered by: MARIAN RAMOS MD Report #: [id number] Location: ER Room/Bed: Procedure: [id number] DX/CHEST SINGLE (PORTABLE) Exam Date: 04/17/17 Exam Time: 0900 REPORT STATUS: Signed PROCEDURE: CHEST SINGLE (PORTABLE) COMPARISON: None. INDICATIONS: CHEST PAIN, CHEST PRESSURE FINDINGS: LUNGS: Mild pulmonary vascular congestion. PLEURA: No effusions or pneumothorax. HEART T MEDIASTINUM: The heart is prominent. BONES T SOFT TISSUES: No acute findings. CONCLUSION: Cardiomegaly with mild pulmonary vascular congestion. Dominic Littlejohn D.O. Dictated by: Dominic Littlejohn D.O. on 04/17/2017 at 10:04 Electronically approved by: Dominic Littlejohn D.O. on 04/17/2017 at 10:04 Dictated By: DOMINIC LITTLEJOHN DO 1004 Transcribed By: JOHNNY on 04/17/17 1004 COPY TO: MARIAN RAMOS MD
[2018-07-30] MEDS ORDERED: ALBUTEROL/IPRATROPIUM 3 ML NEB NEB ONE (07:30)
--- NOTE | 2018-07-30 08:07 | Diagnostic Imaging Report ---
EXAMINATION: CHEST SINGLE (PORTABLE) INDICATION: Shortness of breath. COMPARISON: None FINDINGS: TUBES and LINES: None. LUNGS: There are multifocal opacities involving the right mid and bilateral lower lung zones. Perihilar and interstitial opacities. PLEURA: No pleural effusion or pneumothorax. HEART AND MEDIASTINUM: The cardiomediastinal silhouette is mildly enlarged. Atherosclerotic calcifications of the aortic arch. BONES AND SOFT TISSUES: No acute osseous abnormality. UPPER ABDOMEN: No free air under the diaphragm. IMPRESSION: Multifocal consolidation, suspicious for multifocal pneumonia. Alveolar edema could have a similar appearance. Follow-up chest radiograph is suggested. Signed by: Dr. Shailesh Polk MD on 07/30/2018 8:04 AM
[2018-07-30 08:58] LABS: ABG HCO3 26 mmol/L (23-28); ABG PCO2 38 mmHg (41-51); ABG PH 7.44 (7.31-7.41); ABG PO2 151 mmHg (80-105)
[2018-07-30 09:02] LABS: BASOPHILS % 0.2 % (0.0-1.0); EOSINOPHILS % 0.1 % (0.0-6.0); HEMATOCRIT 26.9 % (34.2-44.1); LYMPHOCYTES # (AUTO) 0.4 (1.0-3.2); LYMPHOCYTES % 2.9 % (18.0-39.1); MEAN CORPUSCULAR HEMOGLOBIN 31.1 pg (28-32); MEAN CORPUSCULAR HGB CONC 32.3 g/dL (31-35); MEAN CORPUSCULAR VOLUME 96.1 fL (81-99); MONOCYTES # (AUTO) 1.2 (0.2-0.8); MONOCYTES % 9.9 % (4.4-11.3); NEUTROPHILS # (AUTO) 10.6 (2.1-6.9); NEUTROPHILS % 86.2 % (38.7-80.0); PLATELET COUNT 275 x10e3/uL (140-360)
[2018-07-30 09:03] LABS: HEMOGLOBIN 8.7 g/dL (12.0-16.0)
[2018-07-30 09:28] LABS: ALBUMIN 2.4 g/dL (3.5-5.0); ALBUMIN/GLOBULIN RATIO 0.6 (0.8-2.0); ANION GAP 17.3 mmol/L (8-16); CALCIUM 9.1 mg/dL (8.4-10.2); CREATININE, SERUM 2.01 mg/dL (0.57-1.11); POTASSIUM 4.3 mmol/L (3.5-5.1)
[2018-07-30] MEDS: AZITHROMYCIN 500MG/NS 250 ML 250 ML IV SCH (09:38)
[2018-07-30] MEDS: CEFTAROLINE FOSAMIL ACETATE 600 MG in SODIUM CHLORIDE 0.9% 250ML 250 ML IV SCH ×2 (09:41→21:18)
[2018-07-30] MEDS ORDERED: SODIUM CHLORIDE 0.9% 1000ML 1,000 ML IV ONE (09:45)
[2018-07-30] MEDS ORDERED: SODIUM CHLORIDE FLUSH 10 ML SYR INJ PRN (10:00)
[2018-07-30] MEDS ORDERED: DEXTROSE 50% SYRINGE 50 ML IV PRN (10:00)
[2018-07-30] MEDS ORDERED: GUAIFENESIN 600 MG TAB PO PRN (10:00)
--- OUTSIDE RECORDS SUMMARY | 2018-07-30 10:34 | XMS REPORT | Clinical Summary ---
Author Author Valatie Faith Organization Valatie Faith Address Unknown Phone Unavailable Care Team Providers Care Earth Observations Chief Scientist Name Role Phone Jazmin Wood MD PCP [...] 30-59 ml/min (HCC); Ischemic stroke (HCC) 07/06/2018 [facility] General Surgery - Encounter 07/10/2018 07/06/2018 Travel [...] type; UTI (urinary tract infection), bacterial 10/30/2017 [facility] General Internal Medicine - Encounter 11/02/2017 Shan [...] Taken Vital Sign Reading 07/10/2018 11:39 AM [facility] Blood Pressure 153/68 07/10/2018 11:39 AM [facility] Pulse 66 07/10/2018 11:39 AM [facility] Temperature 36.8 C (98.2 F) 07/10/2018 11:39 AM [facility] Respiratory Rate 18 07/10/2018 11:39 AM [facility] Oxygen Saturation 97% - Inhaled Oxygen - Concentration 07/06/2018 2:13 PM [facility] Weight 54.4 kg (120 lb) 07/06/2018 2:13 PM [facility] Height 162.6 cm (5' 4") 07/06/2018 2:13 PM [facility] Body Mass Index 20.6 Plan of Treatment Care Team Description Date Type Specialty Shan Woodson MD 2019 [facility] [address] [place], [place] [id number] 08/05/2018 Office Visit Orthopedic Surgery Health Maintenance Due Date Last Done Comments SHINGLES VACCINES (1 of 1980 2) PNEUMOCOCCAL 10/03/1995 POLYSACCHARIDE VACCINE AGE 65 AND OVER PNEUMOCOCCAL-13 10/03/1995 INFLUENZA VACCINE 01/09/2018 Procedures Comments Procedure Name Priority Date/Time Associated Diagnosis POC GLUCOSE Routine 07/10/2018 12:02 PM [facility] POC GLUCOSE Routine 07/10/2018 6:39 AM [facility] ESTIMATED GFR Routine 07/10/2018 4:51 AM [facility] BASIC METABOLIC PANEL Routine 07/10/2018 4:51 AM [facility] POC GLUCOSE Routine 07/09/2018 8:37 PM [facility] [employer] [facility] POC GLUCOSE Routine 07/09/2018 4:56 PM [facility] [employer] [facility] POC GLUCOSE Routine 07/09/2018 11:33 AM [facility] ESTIMATED GFR Routine 07/09/2018 6:15 AM [facility] MAGNESIUM LEVEL Routine 07/09/2018 6:15 AM [facility] BASIC METABOLIC PANEL Routine 07/09/2018 6:15 AM [facility] POC GLUCOSE Routine 07/09/2018 6:11 AM [facility] POC GLUCOSE Routine 07/08/2018 9:03 PM [facility] ARTERIAL BLOOD GAS Routine 07/08/2018 8:45 PM [facility] XR CHEST 1 VW PORTABLE Routine 07/08/2018 8:41 PM [facility] [employer] [facility] POC GLUCOSE Routine 07/08/2018 6:19 PM [facility] [employer] [facility] ESTIMATED GFR Routine 07/08/2018 6:00 AM [facility] BASIC METABOLIC PANEL Routine 07/08/2018 6:00 AM [facility] PHOSPHORUS LEVEL Routine 07/08/2018 6:00 AM [facility] MAGNESIUM LEVEL Routine 07/08/2018 6:00 AM [facility] CREATINE KINASE, TOTAL Routine 07/08/2018 (CPK) 6:00 AM [facility] [facility] HC COMPLETE BLD COUNT Routine 07/08/2018 W/AUTO DIFF 6:00 AM [facility] PROTEIN, URINE, RANDOM Routine 07/08/2018 4:30 AM [facility] CREATININE LEVEL, URINE, Routine 07/08/2018 RANDOM 4:30 AM [facility] SODIUM LEVEL, URINE, Routine 07/08/2018 RANDOM 4:30 AM [facility] URINALYSIS SCREEN AND Routine 07/08/2018 MICROSCOPY, WITH REFLEX 4:30 AM [facility] TO CULTURE URINE CULTURE Routine 07/08/2018 4:30 AM [facility] ECHOCARDIOGRAM 2D Routine 07/07/2018 COMPLETE W MMODE SPECTRAL 3:05 PM [facility] COLOR DOPPLER ([id number]) TROPONIN Routine 07/07/2018 6:51 AM [facility] ESTIMATED GFR Routine 07/07/2018 6:51 AM [facility] BASIC METABOLIC PANEL Routine 07/07/2018 6:51 AM [facility] [facility] HC COMPLETE BLD COUNT Routine 07/07/2018 W/AUTO DIFF 6:51 AM [facility] TROPONIN Timed 07/07/2018 2:45 AM [facility] TROPONIN Timed 07/06/2018 10:25 PM [facility] TROPONIN Timed 07/06/2018 6:[address] HEAD WO CONTRAST STAT 07/06/2018 4:29 PM [facility] XR CHEST 1 VW PORTABLE STAT 07/06/2018 3:05 PM [facility] CREATINE KINASE, TOTAL STAT 07/06/2018 (CPK) 2:30 PM [facility] ESTIMATED GFR STAT 07/06/2018 2:30 PM [facility] [facility] B NATRIURETIC PEPTIDE STAT 07/06/2018 2:30 PM [facility] TROPONIN STAT 07/06/2018 2:30 PM [facility] COMPREHENSIVE METABOLIC STAT 07/06/2018 PANEL 2:30 PM [facility] PARTIAL THROMBOPLASTIN STAT 07/06/2018 TIME (PTT) 2:30 PM [facility] PROTHROMBIN TIME WITH INR STAT 07/06/2018 2:30 PM [facility] [facility] HC COMPLETE BLD COUNT STAT 07/06/2018 W/AUTO DIFF 2:30 PM [facility] ECG 12-LEAD STAT 07/06/2018 2:26 PM [facility] ECG ED PRELIMINARY Routine 07/06/2018 INTERPRETATION 2:15 PM [facility] [facility] XR KNEE 3 VW BILATERAL Routine 04/03/2018 Pain in both knees, 4:08 PM CDT unspecified chronicity RI ARTHROCENTESIS Routine 04/03/2018 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 POC glucose 172 (H) 65 - 99 mg/dL [facility] Comment: [facility] Meter ID: [id number] Major Assembler: Kyle Coto Performing Organization Address City/State/Zipcode [place] [address] [place] [address] PATHOLOGY AND GENOMIC MEDICINE [facility] [address] [address] [place] [address] [facility] * Estimated GFR (07/10/2018 4:51 AM [employer] [facility]) Only the most recent of 5 results within the time period is included. Estimated GFR 27 (A) mL/min/1.73 m2 [facility] Comment: [facility] CatergoryUnitsInte rpretation G1 >=90 Normal or high G2 60-89Mildly decreased [id number] Mildly to moderately decreased [id number] Moderately to severely decreased G4 15-29Severely decreased G5 <15Kidney failure The eGFR was calculated using the Chronic Kidney Disease Epidemiology Collaboration (CKD-EPI) equation. Interpretation is based on recommendations of the National Kidney Foundation-Kidney Disease Outcomes Quality Initiative (NKF-KDOQI) published in 2014. Specimen Plasma specimen Performing Organization Address [facility] [place] Phone Number [address] [place] [address] PATHOLOGY AND GENOMIC MEDICINE [address] * Basic metabolic panel (07/10/2018 4:51 AM [facility] [facility]) Only the most recent of 6 results within the time period is included. Sodium 141 135 - 148 mEq/L [facility] Potassium 4.4 3.5 - 5.0 mEq/L [facility] Chloride 106 98 - 112 mEq/L [facility] CO2 24 24 - 31 mEq/L [facility] Anion gap 11@ANIO 7 - 15 mEq/L [facility] BUN 50 (H) 8 - 23 mg/dL [facility] Creatinine 1.70 (H) 0.50 - 0.90 mg/dL [facility] Glucose 140 (H) 65 - 99 mg/dL [facility] Calcium 8.7 (L) 8.8 - 10.2 mg/dL [facility] Specimen Plasma specimen Performing Organization Address [facility] [place] Phone Number [address] [place] [address] PATHOLOGY AND [facility] MEDICINE [address] * Magnesium level (07/09/2018 6:15 AM [employer] [facility]) Only the most recent of 3 results within the time period is included. Magnesium 2.0 1.6 - 2.4 mg/dL [facility] Specimen Plasma specimen Performing Organization Address [facility] [place] Phone Number [address] [place] [address] PATHOLOGY AND GENOMIC MEDICINE [address] [place] [address] [facility] * Arterial blood gas (07/08/2018 8:45 PM [employer] [facility]) pH, arterial 7.42 7.35 - 7.45 [facility] pCO2, arterial 40 35 - 45 mmHg [facility] pO2, arterial 74 (L) 80 - 90 mmHg [facility] Bicarbonate, arterial 25.8 21.0 - 28.0 mmol/L [facility] Base excess, arterial 2 -2 - 2 mEq/L [facility] O2 saturation, arterial 96 95 - 100 % [facility] FiO2, inspired O2% 50 % [facility] Specimen Blood Performing Organization Address City/[facility]/Zipcode Phone Number [facility] DEPARTMENT OF [address] [place] [address] [place] [address] PATHOLOGY AND GENOMIC MEDICINE [address] [place], [place] [id number] [place] [address] * XR Chest 1 Vw Portable (07/08/2018 8:41 PM [facility] [facility]) Only the most recent of 3 results [...] is enlarged.Visualized osseous structures areno acute abnormality. [facility]-[id number] Procedure Note Hm Interface, Radiology Results Incoming - 07/08/2018 11:23 PM [facility] Study:XR CHEST 1 VW PORTABLE History: sob COMPARISON: October 30, 2017 IMPRESSION: A single view of the chest. Small left pleural effusion and left lower lobe consolidation or atelectasis present. No pneumothorax. There is streaky airspace opacities in the left perihilar region. Cardiac silhouette is enlarged. Visualized osseous structures are no acute abnormality. [facility]-[id number] Performing Organization Address City/[facility]/Zipcode Phone Number [facility] [address] [place] [address] * CBC with platelet and differential (07/08/2018 6:00 AM [employer] [facility]) Only the most recent of 6 results within the time period is included. WBC 8.70 4.50 - 11.00 k/uL [facility] RBC 2.68 (L) 4.20 - 5.50 m/uL [facility] HGB 8.6 (L) 12.0 - 16.0 g/dL [facility] HCT 27.7 (L) 37.0 - 47.0 % [facility] MCV 103.4 (H) 82.0 - 100.0 fL [facility] MCH 32.1 27.0 - 34.0 pg [facility] MCHC 31.0 31.0 - 37.0 g/dL [facility] RDW - SD 47.5 37.0 - 55.0 fL [facility] MPV 8.1 (L) 8.8 - 13.2 fL [facility] Platelet count 148 (L) 150 - 400 k/uL [facility] Nucleated RBC 0.00 /100 WBC [facility] Neutrophils 82.0 (H) 39.0 - 69.0 % [facility] Lymphocytes 5.7 (L) 25.0 - 45.0 % [facility] Monocytes 11.4 (H) 0.0 - 10.0 % [facility] Eosinophils 0.1 0.0 - 5.0 % [facility] Basophils 0.2 0.0 - 1.0 % [facility] Specimen Blood Performing Organization Address City/[facility] Phone Number [address] [place] [address] PATHOLOGY AND GENOMIC MEDICINE [address] * Phosphorus level (07/08/2018 6:00 AM [facility] [facility]) Phosphorus 3.1 2.4 - 4.5 mg/dL [facility] Specimen Plasma specimen Performing Organization Address City/[facility] Phone Number [address] [place] [address] PATHOLOGY AND GENOMIC MEDICINE [address] * Creatine kinase, total (CPK) (07/08/2018 6:00 AM [employer] [employer] [facility]) Only the most recent of 3 results within the time period is included. Creatine kinase 125 26 - 192 U/L [facility] Specimen Plasma specimen Performing Organization Address [facility] [place] Phone Number [address] [place] [address] PATHOLOGY AND GENOMIC MEDICINE [address] * Urinalysis screen and microscopy, with reflex to culture (07/08/2018 4:30 AM [employer] [facility]) Only the most recent of 2 results within the time period is included. Specimen site Clean catch [facility] Color, UA Yellow [facility] Appearance, UA Clear [facility] Specific gravity, UA 1.011 1.001 - 1.035 [facility] pH, UA 5.0 5.0 - 8.5 [facility] Protein, UA Negative Negative [facility] Glucose, UA Negative Negative [facility] Ketones, UA Negative Negative [facility] Bilirubin, UA Negative Negative [facility] Blood, UA Negative Negative [facility] Nitrite, UA Negative Negative [facility] Urobilinogen, UA Negative <2.0 [facility] Leukocyte esterase, UA Negative Negative [facility] Epithelial cells, UA Few /HPF [facility] WBC, UA 0-5 0 - 4 /HPF [facility] RBC, UA 0-5 0 - 5 /HPF [facility] Bacteria, UA None seen None seen [facility] Yeast, UA None seen [facility] Yeast with pseudohyphae, None seen [facility] Hyaline casts, UA 3-5 /LPF [facility] Specimen Urine Performing Organization Address [facility] [place] Phone Number [facility] [address] [place] [address] PATHOLOGY AND GENOMIC [address] [place] [address] * Sodium level, urine, random (07/08/2018 4:30 AM [employer] [employer] [facility]) Sodium, urine, random 54 mEq/L [facility] Specimen Urine Performing Organization Address City/[facility] Phone Number [address] [place] [address] PATHOLOGY AND GENOMIC MEDICINE [address] * Protein, urine, random (07/08/2018 4:30 AM [facility] [facility]) Protein, urine random 16 mg/dL [facility] Specimen Urine Performing Organization Address [facility] [place] Phone Number [address] [place] [address] PATHOLOGY [address] * Creatinine level, urine, random (07/08/2018 4:30 AM [facility] [facility]) Creatinine, urine, random 73 mg/dL [facility] Specimen Urine Performing Organization Address [facility] [place] Phone Number [address] [place] [address] PATHOLOGY [address] * Urine culture (07/08/2018 4:30 AM [employer] [facility]) Only the most recent of 2 results within the time period is included. Urine culture SEE COMMENTComment: [facility] Bacteriuria screen negative. [facility] Specimen Urine Performing Organization Address [facility] [place] Phone Number [address] [place] [address] PATHOLOGY AND [facility] MEDICINE [address] * Echocardiogram complete w contrast and 3D if needed (07/07/2018 3:05 PM [facility] [employer] [facility]) AoV Area, Vmax 2.20 cm2 SYNGO AoV [...] LV EF,BP 38.77 % [facility] [place],d A2C 8.02 cm [facility] [place],d A4C 8.52 cm [facility] [place],s A2C 7.49 cm [facility] [place],s A4C 7.93 cm [facility] LV,s 4.14 [...] RVSP is 65 mmHg. Performing Organization Address [facility]/[employer] Phone Number [facility] [address] [place] [address] * Troponin (07/07/2018 6:51 AM [employer]) Only the most recent of 6 results within the time period is included. Troponin <0.300 0.000 - 0.300 ng/mL [facility] Comment: [facility] 0.30 - 1.49 ng/mlMay indicate increased risk of acute coronary syndrome. >=1.5 ng/ml Consistent with acute myocardial infarction. The diagnostic value of a single normal or non-diagnostic result is questionable.Serial samples at 2-6 hour intervals are required to rule out acute myocardial injury. Specimen Plasma specimen Performing Organization Address City/[facility] Centercode Phone Number [facility] [place] [place] [address] [place] [address] PATHOLOGY AND GENOMIC MEDICINE [facility] [address] [place] [address] [facility] * CT Head Wo Contrast (07/06/2018 4:29 PM [employer]) Only the most recent of 2 results [...] intracranial abnormality. Stable significant paranasal sinus disease. [id number] Procedure Note Interface, Radiology Results Incoming - 07/06/2018 4:40 PM [facility] [facility] Study: CT HEAD WO CONTRAST History:Altered level [...] intracranial abnormality. Stable significant paranasal sinus disease. [id number] Performing Organization Address City/State/Zipcode Phone Number [facility] [address] [place] [address] * Partial thromboplastin time, activated (07/06/2018 2:30 PM [employer]) PTT 42.1 (H) 23.0 - 36.0 sec [facility] Comment: [facility] PTT therapeutic range for unfractionated heparin is 61.0-112.0 seconds which corresponds to Anti-Xa 0.3-0.7 U/ml. Specimen Blood Performing Organization Address [facility] Cent[facility]ode Phone Number [address] [place] [address] PATHOLOGY AND GENOMIC MEDICINE [address] * Prothrombin time with INR (07/06/2018 2:30 PM [employer]) Prothrombin time 14.7 (H) 11.5 - 14.5 sec [facility] INR 1.2 [facility] Comment: [facility] The International Normalized Ratio (INR) is a therapeutic monitoring tool for patients who are stable on oral anticoagulant therapy. An INR of 2.0-3.0 is suggested for deep vein thrombosis/pulmonary embolism. Specimen Blood Performing Organization Address [facility] [place] Phone Number [address] [place] [address] PATHOLOGY [address] * B natriuretic peptide (07/06/2018 2:30 PM [employer]) Only the most recent of 2 results within the time period is included. BNP 3,221 (H) 0 - 100 pg/mL [facility] Specimen Blood Performing Organization Address [facility] Cent[facility] Phone Number [facility] DEPARTMENT OF [address] [place] [address] [place] [address] PATHOLOGY AND GENOMIC MEDICINE [address] * Comprehensive metabolic panel (07/06/2018 2:30 PM [employer]) Only the most recent of 2 results within the time period is included. Sodium 139 135 - 148 mEq/L [facility] Potassium 4.3 3.5 - 5.0 mEq/L [facility] Chloride 103 98 - 112 mEq/L [facility] CO2 22 (L) 24 - 31 mEq/L [facility] Anion gap 14@ANIO 7 - 15 mEq/L [facility] BUN 31 (H) 8 - 23 mg/dL [facility] Creatinine 1.90 (H) 0.50 - 0.90 mg/dL [facility] Glucose 154 (H) 65 - 99 mg/dL [facility] Calcium 9.2 8.8 - 10.2 mg/dL [facility] Protein 6.7 6.3 - 8.3 g/dL [facility] Comment: [facility] Tony 4.6-7.0 g/dL 1 week 4.4-7.6 g/dL 7 months-1year 5.1-7.3 g/dL 1-2 years5.6-7 .5 g/dL >3 years6.0-8 .0 g/dL 18-150 6.3-8.3 g/dL Albumin 3.5 3.5 - 5.0 g/dL [facility] A/G ratio 1.1 0.7 - 3.8 [facility] Alkaline phosphatase 71 35 - 104 U/L [facility] AST 29 10 - 35 U/L [facility] ALT 14 5 - 50 U/L [facility] Total bilirubin 0.6 0.0 - 1.2 mg/dL [facility] Specimen Plasma specimen Performing Organization Address City/State/Zipcode [place] Number [place] [address] [place] [address] PATHOLOGY AND GENOMIC MEDICINE [facility] [address] * ECG 12 lead (07/06/2018 2:26 PM [employer]) Only the most recent of 2 results [...] ECG-In automated comparison with ECG of 30-OCT-2017 13:52,-RI interval has decreased-QT has lengthened- Narrative Performed At Performing Organization Address [facility] Phone Number [facility] [address] [place] [address] * ECG ED Preliminary Interpretation - Not an Order (07/06/2018 2:15 PM [employer]) Only the most recent of 2 results within the time period is included. Narrative Performed At Willard Rodriguez MD 07/06/20183:55 PM ECG ED Preliminary Interpretation - Not an Order Performed by: Willard Rodriguez MD Authorized by: Willard Rodriguez MD ECG reviewed by ED Physician in the absence of a senior sql developer: yes Interpretation: Interpretation: abnormal Rate: ECG rate:69 [...] moderate narrowing. Tricompartmental osteoarthritis. Performing Organization Address [facility] Centercode Phone Number [facility] [address] [place] [address] * Large Joint Arthrocentesis (04/03/2018 3:30 PM [...] to verify the correct patient, procedure, equipment, system support technician and site/side marked as required Supporting Documentation [...] 4:45 AM CDT) Cholesterol 172 <200 mg/dL [facility] DEPARTMENT OF PATHOLOGY AND GENOMIC MEDICINE Triglycerides 114 <150 mg/dL [facility] DEPARTMENT OF PATHOLOGY AND GENOMIC MEDICINE HDL cholesterol 44 >40 mg/dL [facility] DEPARTMENT OF PATHOLOGY AND GENOMIC MEDICINE LDL cholesterol 112 (H)Comment: Result <100 mg/dL [facility] DEPARTMENT OF obtained by direct LDL PATHOLOGY AND measurement GENOMIC MEDICINE [facility]id panel [facility] DE[facility] OF interpretation Comment: PATHOLOGY AND Total [...] mg/dL) Specimen Plasma specimen Performing Organization Address [facility] Phone Number [address] [place] [address] PATHOLOGY AND [employer] MEDICINE * Estimated GFR (11/01/2017 4:45 AM CDT) Only the most recent of 3 results within the time period is included. GFR Non Af Amer 28 (A) mL/min/1.73 m2 [facility] DEPARTMENT OF PATHOLOGY AND GENOMIC MEDICINE GFR Af Amer 34 (A) mL/min/1.73 m2 [facility] DEPARTMENT OF Comment: PATHOLOGY AND Chronic [...] Americans. Specimen Plasma specimen Performing Organization Address [facility] Cent[facility]ode Phone Number [address] [place] [address] PATHOLOGY AND GENOMIC MEDICINE * Echocardiogram complete [...] [facility] AoV area i VTI BSA [place] 1.07 cm2/m2 [facility] MR peak grad [...] LV EF,BP 27.74 % [facility] [place],d A2C 7.88 cm [facility] [place],d A4C 8.64 cm [facility] [place],s A2C 7.18 cm [facility] [place],s A4C 7.64 cm [facility] LV SV,A2C [...] Address City/State/[place] Phone Number [facility] [address] [place] [address] * PV carotid duplex (10/31/2017 7:40 AM [...] internal carotid artery bilaterally. Performing Organization Address [facility]/Zipcode Phone Number [facility] [address] [place] [address] * Vitamin B12 level (10/31/2017 4:57 AM CDT) Vitamin B12 723 211 - 946 pg/mL [facility] DEPARTMENT OF Comment: PATHOLOGY AND Significant overlap exists GENOMIC MEDICINE between normal and deficiency states. However, most patients with deficiencies will have Serum B12 <200 pg/mL. Specimen Serum Performing Organization Address [facility]/Zipcode Phone Number [facility] [place]MENT [place] [id number] [place] [address] [address] [place] [address] PATHOLOGY AND GENOMIC MEDICINE * Blood culture, aerobic & anaerobic (10/30/2017 8:50 PM CDT) Only the most recent of 2 results within the time period is included. Blood culture isolate No growth after 5 days of [facility] DEPARTMENT OF incubation. PATHOLOGY AND Comment: GENOMIC MEDICINE Specimen Information Specimen Source: Blood Specimen Site: Arm, right Specimen Blood - Arm, right Performing Organization Address [facility]/Zipcode Phone Number [facility] DEPARTMENT OF [address] [place] [address] PATHOLOGY AND GENOMIC MEDICINE * Gram stain (10/30/2017 3:40 PM CDT) Gram stain result Few WBC's [facility] DEPARTMENT OF Few Gram positive rods PATHOLOGY AND Comment: GENOMIC MEDICINE Specimen Information Specimen Source: Urine Specimen Site: Clean catch Specimen Urine Performing Organization Address [facility]/Zipcode Phone Number [facility] DEPARTMENT OF [address] [place] [address] PATHOLOGY AND GENOMIC MEDICINE * XR Hip 2-3 View Left (09/21/2017 2:42 PM CDT) Narrative Performed At [facility] X-rays left hip 2 views AP pelvis lateral left hip 09/21/2017: 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 Performing Organization Address City/[facility]/Zipcode Phone Number [facility] [address] [place] [address] after 07/29/2017 Insurance Payer Benefit Subscriber ID Type Phone Address Plan / Group UHC MEDICARE UHC xxxxxxxxx [facility] [place] Advance Directives Patient has advance care planning documents, and code status on file. For more i nformation, please contact: Amanuel Roberts [address] [place] [address] Date Inactivated Comments Code Status Date Activated 07/10/2018 6:47 PM Full Code 07/06/2018 6:52 PM Code Status decision reached by: Patient 11/02/2017 11:15 PM DNR 11/01/2017 10:15 AM Code Status decision reached by: Patient by means of Directive
--- NOTE | 2018-07-30 11:17 | NUR ---
moved pt to hosp bed
[2018-07-30] MEDS: IPRATROPIUM BROMIDE 0.02% 2.5 ML NEB NEB SCH ×2 (12:20→19:20)
[2018-07-30] MEDS: ALBUTEROL SULF 0.083% NEB SOLN 3 ML NEB NEB SCH ×4 (12:20→23:20)
[2018-07-30] MEDS: SODIUM CHLORIDE 0.9% 1000ML 1,000 ML IV SCH (12:33)
[2018-07-30] MEDS ORDERED: ENOXAPARIN SOD INJ 40 MG/0.4 ML SYR SC SCH (17:00)
--- NOTE | 2018-07-30 17:00 | NUR ---
RCD PT FROM ER BY BED PT IS ALERT AND ORIENTED VITALS CHECKED PT RESTING ON BED NO SIGNS OF ANY DISTRESS NOTED VITALS CHECKED IV PATENT GETTING O2 2L BY NC ADMISSION ASSESSMENT AND HISTORY DONE FAMILY AT BED SIDE INSTRUCTED PT AND FAMILY REGARDING HOSPITAL ROUTINE AND POLICY BED LOW AND LOCKED CALL LIGHT IN REACH
[2018-07-30 17:41] VITALS: BP 155/70
[2018-07-30 18:03] VITALS: BP 155/70
[2018-07-30 18:19] VITALS: BP 155/70
[2018-07-30 18:26] LABS: THYROID STIMULATING HORMONE 2.786 uIU/mL (0.350-4.940)
[2018-07-30] MEDS: TORSEMIDE 10 MG TAB PO SCH (18:30)
--- NOTE | 2018-07-30 19:17 | NUR ---
PT RESTING ON BED BED SIDE REPORT GIVEN TO ONCOMING NURSE
[2018-07-30 20:00] VITALS: BP 161/74
[2018-07-31] VITALS (7 sets, daily range): BP systolic 114–164; BP diastolic 58–74
[2018-07-31] MEDS: ALBUTEROL SULF 0.083% NEB SOLN 3 ML NEB NEB SCH ×6 (00:17→19:30)
--- NOTE | 2018-07-31 01:53 | History and Physical ---
The patient is an 87-year-old female who comes in with pneumonia. HISTORY OF PRESENT ILLNESS: Ms. Mcfarland who was recently treated in [facility] for pneumonic infiltration and was sent to a skilled nursing for further treatment and also for rehabilitation. The patient in the meantime 1 week prior to this developed cough and congestion, and Dr. Saleem was notified and the patient had a chest x-ray. Chest x-ray showed small effusion and also cardiomegaly and bilateral atelectasis, and the patient was sent here, was found to have pneumonia and admitted to the hospital for pneumonic process. The patient's diagnosis would be healthcare-associated pneumonia and acute renal failure. PAST MEDICAL HISTORY: History of hypertension, history of dementia, history of congestive heart failure, history of hypothyroidism, history of recent urinary tract infection, history of hyperlipidemia too. 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 PAST SURGICAL HISTORY: History of hysterectomy; history of partial hip replacement, status post fall. MEDICATIONS: The medicines she takes at home are: 1. Carvedilol 40 mg once a day. 2. Potassium chloride 10 mEq once a day. 3. Losartan 50 half a tablet once a day. 4. Torsemide 20 mg once a day. 5. Hydralazine 10 mg two tablets a day. 6. Synthroid 0.75 mg once a day. 7. Aspirin 81 mg once a day. 8. Isosorbide mononitrate 10 mg once a day. 9. The patient also takes ranitidine 150 mg. 10. Atorvastatin 20 mg once a day. 11. The patient takes trazodone 50 mg and sertraline also. 12. Donepezil 5 mg. REVIEW OF SYSTEMS: Negative for chest pain, positive for shortness of breath, positive for some nausea. No vomiting, no diarrhea, no constipation. No rectal pain. No hematochezia, no hematemesis. No blurry vision or diplopia and no headaches. PHYSICAL EXAMINATION: VITAL SIGNS: Temperature is 98.4, pulse is 75, respirations of 24, blood pressure is 151/74. Pulse oximetry of 96% on 3 L of oxygen. HEENT: Normocephalic and atraumatic. The patient is forgetful. CVS: S1, S2. Regular rate and rhythm. ABDOMEN: Nontender and nondistended. LUNGS: Lung post, bilateral rhonchi present especially in the bases. EXTREMITIES: No clubbing, no cyanosis, no edema. NEUROLOGICAL: Alert and oriented x2. She is memory and no focal neurological things seen on examination. LABORATORY DATA: White count is 12.26, hemoglobin is 8.7, hematocrit of 26.9, neutrophil count is 86.2, and there was left shift. Chemistries: Sodium of 135, BUN of 59, creatinine of 2.01, glucose is 178, and sodium of 135. The patient's BNP was 2809.8. Chest x-ray showed multifocal consolidations suspicious for multifocal pneumonia, alveolar edema, could have a similar appearance. ASSESSMENT: 1. Pneumonia. Plan is to continue with antibiotics that has been started. The patient is currently on azithromycin and ceftriaxone. The patient will be continued on that. Echocardiogram will be done to rule out acute congestive heart failure. The patient's elevated BNP trends towards that. Chest x-ray tomorrow. Gentle fluid resuscitation and continue with diuresis at this time. The patient for her hypertension, for her hyperlipidemia, and for her dementia, will continue on the same medications. Further recommendations and consults we will also have consult with for pulmonology purposes and also an echocardiogram will be done as mentioned. Strict I's and O's will be maintained and low-salt diet will be maintained. The patient also has been started on DVT prophylaxis 40 mg daily and also will be started on GI prophylaxis for gastritis. Josue Luz MD ASJ/MODL /[id number]
[2018-07-31] MEDS: IPRATROPIUM BROMIDE 0.02% 2.5 ML NEB NEB SCH ×4 (03:05→19:30)
[2018-07-31 05:05] LABS: BASOPHILS % 0.1 % (0.0-1.0); HEMOGLOBIN 7.7 g/dL (12.0-16.0); LYMPHOCYTES # (AUTO) 0.3 (1.0-3.2); LYMPHOCYTES % 2.4 % (18.0-39.1); MEAN CORPUSCULAR HEMOGLOBIN 31.3 pg (28-32); MEAN CORPUSCULAR HGB CONC 32.1 g/dL (31-35); MEAN CORPUSCULAR VOLUME 97.6 fL (81-99); MONOCYTES # (AUTO) 1.3 (0.2-0.8); MONOCYTES % 9.4 % (4.4-11.3); NEUTROPHILS # (AUTO) 12.1 (2.1-6.9); NEUTROPHILS % 87.5 % (38.7-80.0); PLATELET COUNT 244 x10e3/uL (140-360); RED BLOOD COUNT 2.46 x10e6/uL (3.6-5.1); RED CELL DISTRIBUTION WIDTH 13.2 % (11.7-14.4)
[2018-07-31] MEDS: LEVOTHYROXINE SODIUM 75 MCG TAB PO SCH (05:29)
[2018-07-31 05:48] LABS: ALBUMIN 2.2 g/dL (3.5-5.0); ALBUMIN/GLOBULIN RATIO 0.7 (0.8-2.0); ANION GAP 17.5 mmol/L (8-16); CALCIUM 8.7 mg/dL (8.4-10.2); CREATININE, SERUM 1.85 mg/dL (0.57-1.11); POTASSIUM 3.5 mmol/L (3.5-5.1)
--- NOTE | 2018-07-31 06:08 | Diagnostic Imaging Report ---
EXAMINATION: CHEST SINGLE (PORTABLE) INDICATION: ^PNEMONIA ^[id number] ^[id number] ^Y COMPARISON: 07/30/2018 FINDINGS: AP view TUBES and LINES: None. LUNGS: Lungs are well inflated. Persistent bilateral airspace opacities. PLEURA: No pneumothorax. Small left pleural effusion. HEART AND MEDIASTINUM: The cardiac silhouette is enlarged. BONES AND SOFT TISSUES: No acute osseous lesion. Soft tissues are unremarkable. UPPER ABDOMEN: No free air under the diaphragm. IMPRESSION: Persistent bilateral airspace opacities, representing edema and/or pneumonia. Unchanged small left pleural effusion. Signed by: Dr. Solomon Henson MD on 07/31/2018 6:04 AM
--- NOTE | 2018-07-31 07:00 | NUR ---
Received patient mid fowlers position, side rails upx2, call light within reach, bed alarm on. Resting with eyes closed. Arousable to verbal stimuli. Respirations even and unlabored. O2 3L NC. Will continue to monitor.
[2018-07-31] MEDS: HYDRALAZINE HCL 10 MG TAB PO SCH (08:28)
[2018-07-31] MEDS: CEFTAROLINE FOSAMIL ACETATE 600 MG in SODIUM CHLORIDE 0.9% 250ML 250 ML IV SCH ×2 (08:28→20:21)
[2018-07-31] MEDS: SERTRALINE HCL 50 MG TAB PO SCH (08:29)
[2018-07-31] MEDS: CARVEDILOL 40 MG CAPCR PO SCH (08:29)
[2018-07-31] MEDS: ISOSORBIDE MONONITRATE 20 MG TAB PO SCH (08:29)
[2018-07-31] MEDS: ALPRAZOLAM 0.25 MG TAB PO SCH (08:29)
[2018-07-31] MEDS: TORSEMIDE 10 MG TAB PO SCH ×2 (08:29→17:07)
[2018-07-31] MEDS: AZITHROMYCIN 500MG/NS 250 ML 250 ML IV SCH (09:30)
--- NOTE | 2018-07-31 09:58 | NUR ---
CASE MANAGEMENT ASSESSMENT Packaging Inspector to bedside to discuss plan of care with patient/family. CM/SW role and care transitions discussed. Anticipated discharge plan discussed along with duration of care. CM/SW discussed patients right to make decisions in care. CM/SW work hours given. Patient lives: with her daughter Ирина Doty currently; pt does have her own apartment Admit/Transfer: thru ED; sent from [facility] Hospital/ER visits since last admit: hospitalized at [facility] 1 month ago POA/Emergency contact: Ирина Doty [phone] Current/Previous Home Health: previously had home health. Daughter thinks it was [facility] PCP/Follow-up Care: Dr. Wood - advised pt to follow up with her MD within 7 days of discharge Current/Previous DME: walker, wheelchair for longer distances Medications (referring to index hospitalization or the first time you were in the hospital) a. Were changes made in your medications when you were in the hospital 1 month ago? yes; abx - went to snf b. Did you understand the changes? yes c. Were you able to obtain your new medications right away? n/a - snf d. Were you able to take your medications like the doctor wanted you to? yes e. Did the hospital give you an accurate, easy to understand list of medications when you left? yes Scale of 1-10 how comfortable does patient feel with disease management in outpatient settin Other Services: none Employment Status: retired Areas of Concerns: HCAP, ARF Referral Needs: may need to return to SNF vs Home with home health Education Needs: medical management IMM/XIE given and signed (if applicable): IMM letter delivered and explained to pt. She verbalized understanding. Signed copy placed in chart. Copy to pt's daughter. Goal for discharge: back to SNF vs home with home health depending on how pt progresses here. if pt goes home, she would return to her daughter's house. CM/SW left business card at the bedside with contact information. Name and number was also written on the patients whiteboard. Patient verbalized understanding of discussion. CM will follow-up with ongoing discharge and transition of care needs.
--- NOTE | 2018-07-31 16:42 | Diagnostic Imaging Report ---
Exam: Limited bilateral chest ultrasound dated 07/31/2018 at 2:22 PM History: Effusions Comparison: Chest x-ray performed on 07/31/2018 Findings: Real-time evaluation of both lung bases was accomplished. There are small bilateral pleural effusions. Impression: Small bilateral pleural effusions. Signed by: Dr. Mauricio Littlejohn DO on 07/31/2018 4:39 PM
--- NOTE | 2018-07-31 16:59 | Consultation ---
DATE OF CONSULTATION: Pulmonary Consultation. Patient of Dr. Josue Luz. HISTORY OF PRESENT ILLNESS: An 87-year-old woman, recently discharged from [facility] where she had been admitted, diagnosed with pneumonia in June. She was transferred to the . She became ill there over the last week with cough and shortness of breath, fever. She has a history of chronic kidney disease, hypertension, diabetes, congestive heart failure, old stroke, and presumed coronary disease. She has refused cardiac catheterization presumably because of her renal failure. She has declined interventions including intubation, CPR, mechanical ventilator support, and dialysis. ALLERGIES: SHE IS ALLERGIC TO MORPHINE. MEDICATIONS: Her medications have included: 1. Coreg. 2. Losartan. 3. Demadex. 4. Apresoline. 5. Aspirin. 6. Synthroid. 7. Lipitor. 8. Benazepril. PAST MEDICAL HISTORY: She has a history of skin cancers, particularly melanoma of the right arm, hysterectomy in the past, and hip repair, left hip in the past, remote frontal lobe stroke. SOCIAL HISTORY: Nonsmoker. No alcohol. Born in [place]. 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 PHYSICAL EXAMINATION: GENERAL: white female, lying on her side, in no acute distress. Her daughter helps her with her history and says she has had difficulty eating and poor appetite. VITAL SIGNS: Temperature 99.2, pulse 103, respirations 18, and blood pressure 164/74. LUNGS: Bilateral rhonchi. HEART: Regular rhythm. ABDOMEN: Nontender. EXTREMITIES: Nonedematous. SKIN: Scar is noted where skin cancer has been removed. IMPRESSION: 1. Pneumonia, bilateral, rule out aspiration. 2. Congestive heart failure. 3. Chronic kidney disease. PLAN: To continue supportive care, speech therapy evaluation, and broad-spectrum antibiotics. The patient currently is on azithromycin and IV fluids. Continue to monitor renal function. ultrasound of the chest. Thank you for this kind referral. MD JOHANNE Zhou/MODL /[id number]
[2018-07-31] MEDS ORDERED: ENOXAPARIN SOD INJ 40 MG/0.4 ML SYR SC SCH (17:00)
[2018-07-31] MEDS: ENOXAPARIN 30 MG/0.3 ML SYR SC SCH (17:07)
[2018-07-31] MEDS: SODIUM CHLORIDE 0.9% 1000ML 1,000 ML IV SCH (17:07)
--- NOTE | 2018-07-31 18:03 | NUR ---
Nutrition Screen Note RD Recommendation for Physician: -Rec adding cardiac to ADA diet as medically appropriate -Family requested Glucerna with every meal. Order entered. Plan of Care: RD following, monitoring for tolerance and adequacy Nutrition reason for involvement: Diagnosis Primary Diagnose(s): 1. Pneumonia, bilateral, rule out aspiration. 2. Congestive heart failure. 3. Chronic kidney disease. PMH: HTN, dementia, CHF, hypothyroidism, HLD, CVA Ht: 64in Wt: 110lb BMI: 18.9kg/m2 IBW: 120lb RD Assessment: (07/31) Chart reviewed. Labs and meds reviewed. 87yo F, who was admitted for cough and congestion. Visited pt in the room. Per daughter, pt has had decreased meal intake in the last 4-5 days but she was drinking protein shakes 2-3x a day. No recent weight loss noted with UBW ~110lb. Daughter requested for Glucerna as pt wasnt eating much today. Order has been placed. No complains of nausea or vomiting noted. No chewing or swallowing difficulty reported. Will continue to monitor and follow. Current Diet: ADA diet Malnutrition Evaluation (07/31) The patient does not meet criteria for a specified degree of malnutrition at this time. Will re-evaluate at follow-up as appropriate. Diet Education Needs Assessment: Diet education not indicated. Nutrition Care Level: low Signed: Madelyn Agrawal, MS, RD, LD
[2018-07-31 18:52] LABS: % IRON SATURATION 7 % (15-50); IRON 12 ug/dL (50-170); TOTAL IRON BINDING CAPACITY 172 ug/dL (261-478); TRANSFERRIN 123 mg/dL (180-382)
--- NOTE | 2018-07-31 19:11 | NUR ---
Report given to oncoming nurse of patient's status. No s/s of acute distress noted.
[2018-07-31] MEDS: ACETAMINOPHEN 325 MG TAB PO PRN (20:25)
[2018-07-31] MEDS ORDERED: CEFTAROLINE FOSAMIL ACETATE 600 MG in SODIUM CHLORIDE 0.9% 250ML 250 ML IV SCH (21:00)
--- NOTE | 2018-07-31 23:03 | Progress Note ---
DATE: SUBJECTIVE: The patient came in with acute renal failure, healthcare-associated pneumonia, and also acute on chronic congestive heart failure. The patient is currently afebrile, feeling better according to her. She also had hypoxia when she came in. MEDICATIONS: The patient's medications at this time: 1. Albuterol/Atrovent treatment. 2. Alprazolam. 3. Azithromycin. 4. Carvedilol. 5. Sertraline. 6. Lovenox for DVT prophylaxis. 7. Guaifenesin. 8. Hydralazine. 9. Isosorbide. 10. Levothyroxine. 11. Zoloft. 12. Torsemide. PHYSICAL EXAMINATION: VITAL SIGNS: Temperature is 97.8, pulse of 67, respirations of 20, blood pressure is 136/63, pulse oximetry of 97% on 3 liters of oxygen. HEENT: Normocephalic and atraumatic. The patient looks ashen. LUNGS: Decreased air entry in lung bases. Positive for some rhonchi bilaterally. ABDOMEN: Nontender and nondistended. EXTREMITIES: No clubbing, no cyanosis, and no edema. LABORATORY VALUES: From today, white count is 13.89, hemoglobin is 7.7, hematocrit of 24.0, left shift present. The patient's chemistries show sodium of 137, BUN of 53, creatinine of 1.85, down from 2.01; EGFR is 26%, and glucose is 147. The patient's imaging from today, chest x-ray shows persistent bilateral airspace opacities representing edema or pneumonia left pleural effusion. ASSESSMENT AND PLAN: 1. Pneumonia, bilateral, rule out aspiration. The patient has been sent for a speech evaluation and also an MBS. 2. Congestive heart failure. We will continue the patient on her Demadex. 3. Acute on chronic kidney disease. The patient will be continued on her diuretics. 4. Echocardiogram has been obtained and her EF is 30% with LVH. Plan is to continue with Demadex. The patient is on antibiotics for her pneumonia and we will continue to monitor the patient treatment. The patient is DNR and has been recorded on file. We will continue with all the medications. Further recommendations clinical course. MD CAROLYN Joiner/MODL /[id number]
[2018-08-01] VITALS (7 sets, daily range): BP systolic 119–165; BP diastolic 56–72
[2018-08-01] MEDS: IPRATROPIUM BROMIDE 0.02% 2.5 ML NEB NEB SCH ×4 (00:17→20:11)
[2018-08-01] MEDS: ALBUTEROL SULF 0.083% NEB SOLN 3 ML NEB NEB SCH ×5 (03:17→23:59)
[2018-08-01 05:01] LABS: BASOPHILS % 0.1 % (0.0-1.0); LYMPHOCYTES # (AUTO) 0.4 (1.0-3.2); LYMPHOCYTES % 2.3 % (18.0-39.1); MEAN CORPUSCULAR HEMOGLOBIN 31.4 pg (28-32); MEAN CORPUSCULAR VOLUME 98.2 fL (81-99); MONOCYTES # (AUTO) 1.3 (0.2-0.8); MONOCYTES % 7.9 % (4.4-11.3); NEUTROPHILS # (AUTO) 14.7 (2.1-6.9); NEUTROPHILS % 88.8 % (38.7-80.0); PLATELET COUNT 192 x10e3/uL (140-360); RED BLOOD COUNT 2.23 x10e6/uL (3.6-5.1); RED CELL DISTRIBUTION WIDTH 13.3 % (11.7-14.4)
[2018-08-01 05:10] LABS: HEMATOCRIT 21.9 % (34.2-44.1)
[2018-08-01 05:16] LABS: ANION GAP 15.2 mmol/L (8-16); CALCIUM 8.5 mg/dL (8.4-10.2); CREATININE, SERUM 2.15 mg/dL (0.57-1.11); POTASSIUM 3.2 mmol/L (3.5-5.1)
[2018-08-01] MEDS: LEVOTHYROXINE SODIUM 75 MCG TAB PO SCH (05:39)
[2018-08-01] MEDS ORDERED: FUROSEMIDE INJ 10 MG/ML 2 ML VIAL IV PRN (06:45)
[2018-08-01] MEDS ORDERED: SODIUM CHLORIDE 0.9% 250ML 250 ML IV NR (07:00)
--- NOTE | 2018-08-01 07:10 | NUR ---
aware of Temp. and lab results. See orders
[2018-08-01] MEDS ORDERED: VANCOMYCIN 1GM/NS 250 ML 250 ML IV ONE (07:15)
[2018-08-01] MEDS: ISOSORBIDE MONONITRATE 20 MG TAB PO SCH (08:30)
[2018-08-01] MEDS: TORSEMIDE 10 MG TAB PO SCH (08:30)
[2018-08-01] MEDS: CARVEDILOL 40 MG CAPCR PO SCH (08:30)
[2018-08-01] MEDS: SERTRALINE HCL 50 MG TAB PO SCH (08:30)
[2018-08-01] MEDS: ALPRAZOLAM 0.25 MG TAB PO SCH (08:30)
[2018-08-01] MEDS: HYDRALAZINE HCL 10 MG TAB PO SCH (08:30)
[2018-08-01] MEDS: CEFTAROLINE FOSAMIL ACETATE 600 MG in SODIUM CHLORIDE 0.9% 250ML 250 ML IV SCH ×2 (09:00→20:11)
[2018-08-01] MEDS ORDERED: POTASSIUM CHLORIDE 20MEQ/15ML UDC NG PRN (09:45)
[2018-08-01] MEDS: AZITHROMYCIN 500MG/NS 250 ML 250 ML IV SCH (10:10)
--- NOTE | 2018-08-01 10:14 | Diagnostic Imaging Report ---
Examination: Single AP view of the chest. COMPARISON: Chest radiograph 07/31/2018 INDICATION: Pneumonia DISCUSSION: The lungs remain hypoinflated. Multifocal consolidations involving the lower lobes and right upper lobe grossly unchanged. Small bilateral pleural effusions. Stable cardiomediastinal contour. Atherosclerotic calcification of the aortic arch. No acute osseous abnormality. IMPRESSION: Stable multifocal opacities which may reflect pneumonia or edema. Small bilateral pleural effusions. Signed by: Dr. Pritesh Jaramillo M.D. on 08/01/2018 10:10 AM
[2018-08-01] MEDS ORDERED: POTASSIUM CHLORIDE 20 MEQ TAB CR PO NR (10:15)
--- NOTE | 2018-08-01 10:32 | Progress Note ---
DATE: SUBJECTIVE: The patient came with healthcare associated pneumonia, acute renal failure, anemia, and also history of hypothyroidism. The patient currently is afebrile. The patient's hemoglobin has been reported to be low. The patient is going to get transfused one unit of PRBC. Currently, asymptomatic and no complaints. MEDICATIONS: Include: 1. Albuterol. 2. Atrovent treatments. 3. Azithromycin. 4. Alprazolam. 5. Ceftaroline. 6. Enoxaparin for DVT prophylaxis. 7. Lasix. 8. Hydralazine. 9. Isosorbide dinitrate. 10. Levothyroxine. 11. Torsemide. The patient is also reported to be DNR and has been confirmed by daughter. OBJECTIVE: VITAL SIGNS: Today, temperature is 98.1, pulse of 63, respirations of 18, and blood pressure is 161/70. HEENT: Normocephalic and atraumatic. Pupils are reactive to light and accommodation. The patient has some pallor. CVS: S1 and S2 normal. Regular rate and rhythm. ABDOMEN: Nontender and nondistended. EXTREMITIES: No clubbing. No cyanosis. No edema. LUNGS: Positive for rhonchi in bilateral sites. LABORATORY DATA: Today, white count is 16,000 with hemoglobin of 7.0, hematocrit of 21.9, neutrophil count is 88.8, and lymphocyte 2.3. The patient's chemistry shows sodium of 136, potassium of 3.2, BUN of 56, and creatinine of 2.15. The patient's previous creatinine was 1.85. ASSESSMENT: 1. Community-acquired pneumonia. 2. Acute and chronic congestive heart failure. 3. Pneumonia. PLAN: Continue on antibiotics. The patient's white count has gone up. May add IV vancomycin to the plan. We will monitor the patient along with sap payroll consultant. The patient's chest x-ray will be repeated today again. Continue with diuresis and labs in the morning. The patient is DNR and should also get transfusion of one unit of PRBC today. MD ELÍAS JoinerJ/MODL /[id number]
[2018-08-01] MEDS ORDERED: SODIUM CHLORIDE 0.9% 250ML 250 ML ONE (10:33)
[2018-08-01] MEDS: CLINDAMYCIN 600MG / 50ML 50 ML IV SCH ×2 (14:00→17:18)
[2018-08-01 14:35] LABS: BILIRUBIN,URINE NEGATIVE (NEGATIVE); CLARITY,URINE CLEAR (CLEAR); COLOR,URINE YELLOW (YELLOW); KETONES,URINE NEGATIVE (NEGATIVE); LEUKOCYTE ESTERASE ,URINE NEGATIVE (NEGATIVE); NITRITE,URINE NEGATIVE (NEGATIVE); PROTEIN,URINE DIPSTICK NEGATIVE (NEGATIVE); URINE UROBILINOGEN 0.2 mg/dL (0.2 - 1)
[2018-08-01 14:51] LABS: BACTERIA,URINE MODERATE /HPF; EPITHELIAL CELLS,URINE FEW /LPF; WBC,URINE (MAN) 0-5 /HPF (0-5)
[2018-08-01 14:52] LABS: AMORPHOUS SEDIMENT,URINE FEW (FEW)
[2018-08-01] MEDS ORDERED: TORSEMIDE INJ 10 MG/ML 2 ML AMP IV SCH (15:00)
--- NOTE | 2018-08-01 15:24 | NUR ---
aware Torsemide IV not available. Aware of BNP 3174.6. See orders
[2018-08-01] MEDS: BUMETANIDE INJ 0.25MG/ML 4ML VIAL IV SCH ×2 (16:00→22:28)
--- NOTE | 2018-08-01 16:13 | Consultation ---
DATE OF CONSULTATION: 08/01/2018 Cardiology Consultation REASON FOR CONSULTATION: Congestive heart failure. HISTORY OF PRESENT ILLNESS: This is an 87-year-old woman with chronic systolic heart failure, known left bundle-branch block, hypertension, hyperlipidemia, diabetes mellitus, and chronic kidney disease, as well as history of CVA without residual deficits, who presents with complaints of cough and shortness of breath. The patient indicates that she developed a cough approximately one month prior. She saw her primary care physician, Dr. Wood and was given a course of antibiotics. She did not improve with antibiotic therapy and presented to [facility] for further evaluation. She was diagnosed with pneumonia and then discharged to [facility] for continued care. The daughter indicates that patient had initially been improving, but began to worsen again with worsening cough and malaise. She was subsequently sent to [facility] ER for further care. The patient denies any chest pain or palpitations. She denies edema, orthopnea or PND, but does endorse some shortness of breath. REVIEW OF SYSTEMS: Negative except as per HPI. PAST MEDICAL HISTORY: 1. Chronic systolic heart failure. 2. Left bundle-branch block. 3. Hypertension. 4. Hyperlipidemia. 5. Diabetes mellitus. 6. History of CVA without residual deficit. 7. Chronic kidney disease. 8. Dementia. 9. Hypothyroidism. PAST SURGICAL HISTORY: 1. Hysterectomy. 2. Hip replacement. ALLERGIES: PLEASE SEE EMR. MEDICATIONS: Please see medication list. SOCIAL HISTORY: Denies tobacco, alcohol, or illicit drugs. FAMILY HISTORY: Pertinent for father with atrial fibrillation. PHYSICAL EXAMINATION: VITAL SIGNS: Temperature 98.6 degrees, pulse 62, respiratory rate 20, blood pressure 119/56, oxygen saturation 95% on 2 L nasal cannula. GENERAL: Elderly woman, in no acute distress. HEENT: Normocephalic, atraumatic. Pupils equal, no scleral icterus. NECK: Supple. No thyromegaly or cervical lymphadenopathy. No carotid bruits. LUNGS: Clear to auscultation bilaterally. No wheeze or crackles. CARDIOVASCULAR: Normal rate, regular rhythm. No murmur. Normal S1, S2. ABDOMEN: Soft, nontender. EXTREMITIES: No edema. NEUROLOGIC: Nonfocal exam. CARDIAC MEDICATIONS: Prozac 40 mg p.o. b.i.d., isosorbide mononitrate 10 mg p.o. daily, hydralazine 10 mg p.o. daily, carvedilol 40 mg p.o. daily, levothyroxine 75 mcg p.o. daily. LABORATORY DATA: Sodium 136, potassium 3.2, chloride 104, CO2 20, BUN 56, creatinine 2.15. Chest x-ray, stable multifocal opacities, which may reflect pneumonia or edema. Small bilateral pleural effusions. IMPRESSION: 1. Pneumonia. 2. Acute on chronic systolic heart failure. 3. Pulmonary hypertension by echocardiogram. 4. Known left bundle-branch block. 5. Hypertension. 6. Hyperlipidemia. 7. Diabetes mellitus. 8. Chronic kidney disease. 9. History of cerebrovascular accident without residual deficit. RECOMMENDATIONS: 1. Antibiotics per primary service. Given pulmonary hypertension and systolic heart failure, recommend change to intravenous diuretics. Continue home cardiac medications. Blood pressure is well controlled. The patient's last stress test at the office was abnormal. However, at that time, given her chronic kidney disease, the patient and family declined invasive cardiac evaluation. Continue medical management. Strict I's and O's and daily weights. 2. Continue monitoring the patient on telemetry. Thank you for this consult. We will continue to follow. Marilu Lazo MD ABS/MODL /[id number]
--- NOTE | 2018-08-01 19:15 | NUR ---
Report given to oncoming nurse. No s/s of acute distress noted.
[2018-08-02] VITALS (7 sets, daily range): BP systolic 135–158; BP diastolic 60–68
[2018-08-02] MEDS: CLINDAMYCIN 600MG / 50ML 50 ML IV SCH ×4 (00:16→18:03)
[2018-08-02] MEDS: ALBUTEROL SULF 0.083% NEB SOLN 3 ML NEB NEB SCH ×5 (03:00→19:45)
[2018-08-02 05:43] LABS: BASOPHILS % 0.1 % (0.0-1.0); EOSINOPHILS # (AUTO) 0.1 (0.0-0.4); EOSINOPHILS % 0.4 % (0.0-6.0); HEMATOCRIT 25.2 % (34.2-44.1); HEMOGLOBIN 8.2 g/dL (12.0-16.0); LYMPHOCYTES # (AUTO) 0.3 (1.0-3.2); MEAN CORPUSCULAR HEMOGLOBIN 30.6 pg (28-32); MEAN CORPUSCULAR HGB CONC 32.5 g/dL (31-35); MONOCYTES # (AUTO) 1.2 (0.2-0.8); MONOCYTES % 7.7 % (4.4-11.3); NEUTROPHILS # (AUTO) 14.3 (2.1-6.9); NEUTROPHILS % 88.1 % (38.7-80.0); PLATELET COUNT 189 x10e3/uL (140-360); RED BLOOD COUNT 2.68 x10e6/uL (3.6-5.1); RED CELL DISTRIBUTION WIDTH 15.9 % (11.7-14.4)
[2018-08-02] MEDS: LEVOTHYROXINE SODIUM 75 MCG TAB PO SCH (05:52)
[2018-08-02 05:56] LABS: INR 1.2; PROTHROMBIN TIME 16.3 seconds (11.9-14.5)
[2018-08-02 05:57] LABS: PARTIAL THROMBOPLASTIN TIME 37.9 seconds (23.8-35.5)
[2018-08-02 06:07] LABS: ALBUMIN 2.1 g/dL (3.5-5.0); ALBUMIN/GLOBULIN RATIO 0.6 (0.8-2.0); ANION GAP 13.7 mmol/L (8-16); CALCIUM 8.7 mg/dL (8.4-10.2); CREATININE, SERUM 2.18 mg/dL (0.57-1.11); POTASSIUM 3.7 mmol/L (3.5-5.1)
--- NOTE | 2018-08-02 06:36 | Diagnostic Imaging Report ---
EXAMINATION: CHEST SINGLE (PORTABLE) INDICATION: ^pneumonia ^[id number] ^[id number] COMPARISON: 07/31/2018 FINDINGS: AP view TUBES and LINES: None. LUNGS: Lungs are well inflated. Pulmonary vascular congestion and moderate to severe interstitial edema. PLEURA: Small bilateral pleural effusions. No visible pneumothorax. HEART AND MEDIASTINUM: The cardiac silhouette is enlarged. BONES AND SOFT TISSUES: No acute osseous lesion. Soft tissues are unremarkable. UPPER ABDOMEN: No free air under the diaphragm. IMPRESSION: Enlarged cardiac silhouette, pulmonary vascular congestion, and moderate to severe interstitial edema, increased from prior exam. Underlying pneumonia cannot be excluded. Small bilateral pleural effusions. Signed by: Dr. Solomon Henson MD on 08/02/2018 6:33 AM
[2018-08-02] MEDS: IPRATROPIUM BROMIDE 0.02% 2.5 ML NEB NEB SCH ×4 (06:52→19:45)
--- NOTE | 2018-08-02 07:19 | NUR ---
HANDOFF REPORT AND WALKING ROUNDS WITH OUTGOING SECURITY AGENT NURSE. PT SLEEPING AT THIS TIME WITH EVEN AND UNLABORED RESPIRATIONS.
--- NOTE | 2018-08-02 07:49 | Diagnostic Imaging Report ---
PROCEDURE:X-RAY MODIFIED BARIUM SWALLOW COMPARISON:None. INDICATIONS:Worsening pneumonia and pulmonary edema. Aspiration is likely. DISCUSSION:Fluoroscopic examination was performed in conjunction with speech pathology, during swallowing of a variety of thin and thick liquid consistencies. Fluoroscopy time: 2.1 minutes Total dose: 2.13 Gy.cm2 CONCLUSION:No penetration or aspiration. Mild impression on the posterior cervical esophagus due to a prominent cricopharyngeus muscle. Please see the report from speech pathology for complete details. Mauricio iLttlejohn D.O. Dictated by: Mauricio Littlejohn D.O. on 08/02/2018 at 8:01 Electronically approved by: Mauricio Littlejohn D.O. on 08/02/2018 at 8:01
--- NOTE | 2018-08-02 08:45 | NUR ---
NO IV ACCESS AT THIS TIME; UNSUCCESSFUL ATTEMPT TO START IV. CALL PLACED TO CHARGE NURSE TO ATTEMPT TO START IV.
[2018-08-02] MEDS: ISOSORBIDE MONONITRATE 20 MG TAB PO SCH (08:57)
[2018-08-02] MEDS: ALPRAZOLAM 0.25 MG TAB PO SCH (08:57)
[2018-08-02] MEDS: HYDRALAZINE HCL 10 MG TAB PO SCH ×3 (08:57→20:48)
[2018-08-02] MEDS: CARVEDILOL 40 MG CAPCR PO SCH (08:57)
[2018-08-02] MEDS: SERTRALINE HCL 50 MG TAB PO SCH (08:57)
[2018-08-02] MEDS ORDERED: TORSEMIDE INJ 10 MG/ML 2 ML AMP IV SCH (09:00)
--- NOTE | 2018-08-02 09:01 | NUR ---
DR. ABRAHAN REYNA
--- NOTE | 2018-08-02 10:12 | Progress Note ---
DATE: SUBJECTIVE: The patient comes in with pneumonia, possibly aspiration, acute renal failure. Currently, the patient is coughing, congested, did run a fever yesterday according to the patient and also had some night sweats, currently receiving breathing treatments and also IV antibiotics. MEDICATIONS: The patient is on levothyroxine, clindamycin added for aspiration, albuterol and Atrovent treatment, Bumex, and also the patient is taking sertraline and azithromycin. The patient is also getting her regular CV medication and sertraline for depression. OBJECTIVE: VITAL SIGNS: Temperature is 97.9, blood pressure is 141/64, respirations of 18, pulse of 62. HEENT: Normocephalic, atraumatic. The patient is considered to have severe malnutrition. CVS: S1, S2 normal. Regular rate and rhythm. ABDOMEN: Nontender, nondistended. LUNGS: Positive for rhonchi bilaterally. EXTREMITIES: No clubbing, no cyanosis, no edema. ASSESSMENT AND PLAN: 1. The patient's initial MBS shows dysphagia and a neuromuscular electrical stimulation has been ordered, which will be continued. 2. Acute on chronic systolic heart failure. The patient is on Bumex at this time. 3. Pulmonary hypertension by echocardiogram. 4. Diabetes mellitus. 5. Acute kidney injury. The patient is continuously on IV antibiotics. As mentioned above, clindamycin has been added for aspiration. NMES has been ordered for treatment. We will continue to monitor the patient's telemetry. Further recommendation with clinical course. The patient is DNR. Prognosis is guarded and we will continue managing the patient along with consultants. MD CAROLYN Joiner/MODL /[id number]
[2018-08-02] MEDS: BUMETANIDE INJ 0.25MG/ML 4ML VIAL IV SCH ×2 (10:30→16:33)
[2018-08-02] MEDS: AZITHROMYCIN 500MG/NS 250 ML 250 ML IV SCH (10:30)
[2018-08-02] MEDS: CEFTAROLINE FOSAMIL ACETATE 600 MG in SODIUM CHLORIDE 0.9% 250ML 250 ML IV SCH ×2 (11:51→20:48)
--- NOTE | 2018-08-02 12:30 | NUR ---
IMM letter delivered and explained to pt's daughter at bedside. She verbalized understanding. Signed copy placed in chart. Copy to daughter.
--- NOTE | 2018-08-02 14:23 | Progress Note ---
DATE: 08/02/2018 Cardiology Progress Note SUBJECTIVE: The patient denies chest pain or shortness of breath. OBJECTIVE: VITAL SIGNS: Temperature 97.1 degrees, pulse 65, respiratory rate 18, blood pressure 158/68, oxygen saturation 96% on 2 L nasal cannula. GENERAL: Elderly woman, in no acute distress, awake and alert. LUNGS: Clear to auscultation bilaterally. No wheezes or crackles. CARDIOVASCULAR: Normal rate, regular rhythm. No murmur. Normal S1, S2. ABDOMEN: Soft and nontender. EXTREMITIES: No edema. CARDIAC MEDICATIONS: Isosorbide mononitrate 10 mg p.o. daily, hydralazine 10 mg p.o. daily, carvedilol 40 mg p.o. daily, levothyroxine 75 mcg p.o. daily, Bumex 2 mg IV b.i.d. LABORATORY DATA: WBC 16.2, hemoglobin 8.2, hematocrit 25.2, platelets 189. Sodium 140, potassium 3.7, chloride 110, CO2 20, BUN 54, creatinine 2.18. Telemetry, normal sinus rhythm. IMPRESSION: 1. Pneumonia. 2. Vblfx-ms-hmztdkh systolic heart failure. 3. Pulmonary hypertension by echocardiogram. 4. Known left bundle branch block. 5. Hypertension. 6. Hyperlipidemia. 7. Diabetes mellitus. 8. Chronic kidney disease. 9. History of cerebrovascular accident. RECOMMENDATIONS: Antibiotics per primary service. Given pulmonary hypertension and systolic heart failure as well as elevated BNP, the patient was transitioned to IV diuretics. We will continue to monitor creatinine closely. Replete electrolytes. Blood pressure is elevated. We will titrate up her hydralazine. Continue current cardiac medications otherwise. The patient has known abnormal stress test; however, due to her chronic kidney disease, the patient and family declined invasive cardiac evaluation. Continue medical management. Strict I's and O's as well as daily weights. The patient is undergoing evaluation for aspiration. Monitor the patient on telemetry. Thank you for this consult. We will continue to follow. Marilu Lazo MD ABS/MODL /[id number]
--- NOTE | 2018-08-02 16:21 | NUR ---
SPOKE WITH PT DAUGHTER ABOUT SNF, SHE IS UNSURE IF SHE WANTS TO RETURN TO [facility], GAVE OTHER OPTIONS IN NETWORK, SHE STATES SHE WOULD LIKE TO THINK ABOUT IT OVER NIGHT. WILL FOLLOW UP TO GET CHOICE.
--- NOTE | 2018-08-02 19:30 | NUR ---
Patient received lying in bed. AAO x 2. Patient had no complaints of pain. No signs of respiratory distress. 2L NC in place. Fall precautions maintained. Call light within reach.
[2018-08-03] VITALS (7 sets, daily range): BP systolic 149–176; BP diastolic 69–76
[2018-08-03] MEDS: CLINDAMYCIN 600MG / 50ML 50 ML IV SCH ×5 (00:30→23:49)
[2018-08-03] MEDS: ALBUTEROL SULF 0.083% NEB SOLN 3 ML NEB NEB SCH ×7 (03:00→23:20)
[2018-08-03 05:32] LABS: BASOPHILS % 0.2 % (0.0-1.0); EOSINOPHILS # (AUTO) 0.1 (0.0-0.4); HEMATOCRIT 25.1 % (34.2-44.1); HEMOGLOBIN 8.2 g/dL (12.0-16.0); LYMPHOCYTES # (AUTO) 0.4 (1.0-3.2); LYMPHOCYTES % 3.1 % (18.0-39.1); MEAN CORPUSCULAR HEMOGLOBIN 30.7 pg (28-32); MEAN CORPUSCULAR HGB CONC 32.7 g/dL (31-35); MONOCYTES # (AUTO) 0.9 (0.2-0.8); MONOCYTES % 8.1 % (4.4-11.3); NEUTROPHILS # (AUTO) 9.8 (2.1-6.9); NEUTROPHILS % 85.3 % (38.7-80.0); PLATELET COUNT 192 x10e3/uL (140-360); RED BLOOD COUNT 2.67 x10e6/uL (3.6-5.1); RED CELL DISTRIBUTION WIDTH 15.7 % (11.7-14.4)
[2018-08-03] MEDS: LEVOTHYROXINE SODIUM 75 MCG TAB PO SCH (06:00)
[2018-08-03 06:01] LABS: ANION GAP 12.5 mmol/L (8-16); CALCIUM 8.5 mg/dL (8.4-10.2); CREATININE, SERUM 2.17 mg/dL (0.57-1.11); POTASSIUM 3.5 mmol/L (3.5-5.1)
[2018-08-03] MEDS: IPRATROPIUM BROMIDE 0.02% 2.5 ML NEB NEB SCH ×5 (07:13→23:35)
[2018-08-03 07:41] LABS: EOSINOPHILS % (MANUAL) 2 % (0-7); LYMPHOCYTES % (MANUAL) 1 % (19-48); MONOCYTES % (MANUAL) 8 % (3.4-9.0); NEUTROPHILS % (MANUAL) 89 % (40-74); PLATELET ESTIMATE ADEQUATE; PLATELET MORPHOLOGY COMMENT NORMAL; RBC MORPHOLOGY COMMENT NORMAL
[2018-08-03] MEDS: ISOSORBIDE MONONITRATE 20 MG TAB PO SCH (08:30)
[2018-08-03] MEDS: BUMETANIDE INJ 0.25MG/ML 4ML VIAL IV SCH ×3 (08:30→17:45)
[2018-08-03] MEDS: HYDRALAZINE HCL 10 MG TAB PO SCH ×3 (08:30→20:20)
[2018-08-03] MEDS: AZITHROMYCIN 500MG/NS 250 ML 250 ML IV SCH (08:30)
[2018-08-03] MEDS: SERTRALINE HCL 50 MG TAB PO SCH (08:30)
[2018-08-03] MEDS: ALPRAZOLAM 0.25 MG TAB PO SCH (08:30)
[2018-08-03] MEDS: CARVEDILOL 40 MG CAPCR PO SCH (08:30)
[2018-08-03] MEDS: CEFTAROLINE FOSAMIL ACETATE 600 MG in SODIUM CHLORIDE 0.9% 250ML 250 ML IV SCH ×2 (10:27→20:20)
--- NOTE | 2018-08-03 12:42 | NUR ---
FAMILY HAS CHOSEN [facility] WOULD LIKE CLINICALS FAXED FOR PLACEMENT.
--- NOTE | 2018-08-03 13:17 | Progress Note ---
DATE: SUBJECTIVE: The patient is an 87-year-old female, who comes in with aspiration pneumonia. Currently, the patient is doing better, is on aspiration prevention. Currently, feeling better and no shortness of breath at this time and no chest pain at this time. OBJECTIVE: VITAL SIGNS: Temperature is 98.3, pulse is 76, blood pressure is 149/76, pulse oximetry 98% on 2 L of nasal cannula. HEENT: Normocephalic, atraumatic. Pupils are reactive to light and accommodation. CVS: S1 and S2 normal. Regular rate and rhythm. ABDOMEN: Nontender and nondistended. EXTREMITIES: No clubbing, no cyanosis, and/or no edema. LABORATORY VALUES: Today's white count has come down from 16 to 11.53, hemoglobin of 8.2, hematocrit of 25.1. Chemistries; sodium of 143, potassium of 3.2, BUN is 55, creatinine of 2.17, glucose 131. The patient's troponins have been trended to be negative. The patient's last echocardiogram with an EF of 40%. ASSESSMENT: Aspiration pneumonia, hospital-acquired pneumonia. PLAN: 1. Continue with the antibiotics. The patient is on clindamycin for aspiration pneumonia. White count is trending down. The patient also has aspiration precautions on protocol. 2. The patient also has physical therapy for aspiration. 3. The patient has modified nutrition for aspiration. 4. The patient with congestive heart failure. The patient is currently on diuresis. We will continue monitoring the patient. Has a history of coronary artery disease. No intervention will be done because of her elevated creatinine levels. 5. Pevgy-ni-mkrmjra kidney injury, better and stabilized to her baseline of 2.17. The patient also has anemia. Lovenox has been stopped and that has resolved. The patient is maintaining her hemoglobin of 8.2. 6. Severe malnutrition. Continue with nutrition consults and continue monitoring the patient's weight and strict I's and O's. 7. History of cerebrovascular accident. We will continue to monitor the patient. Anticoagulants will be held because of recurrent anemia. 8. Blood loss anemia. The patient has received blood transfusion. Plan is to continue monitor the patient. The patient will be started on exercises for aspiration. DISPOSITION: [facility] Further recommendation on clinical course. We will continue to monitor the patient along with consultants. MD CAROLYN Joiner/PABLO /[id number]
--- NOTE | 2018-08-03 15:00 | Progress Note ---
DATE: Cardiology Progress Note SUBJECTIVE: The patient feels well today. Denies any chest pain or shortness of breath. OBJECTIVE: VITAL SIGNS: Temperature 97.4, heart rate 62, respirations 18, blood pressure 176/71, and oxygen saturation 97% on 2 L nasal cannula. GENERAL: She is an elderly woman, lying comfortably in bed, in no apparent distress. CARDIOVASCULAR: Regular rate and rhythm. No murmurs. LUNGS: Clear to auscultation. ABDOMEN: Soft and nontender. EXTREMITIES: No edema. CARDIOVASCULAR MEDICATIONS: Reviewed, bumetanide 2 IV b.i.d. LABORATORY DATA: All laboratory data reviewed. Telemetry monitoring revealed normal sinus rhythm. IMPRESSION: 1. Pneumonia. 2. Nbhue-az-mxxhwhm systolic congestive heart failure. 3. Pulmonary hypertension. 4. Left bundle-branch block. 5. Hypertension. 6. Hyperlipidemia. 7. Diabetes mellitus. 8. History of cerebrovascular accident. RECOMMENDATIONS: Continue current antibiotic therapies per primary service. Family has declined any invasive cardiac catheterizations in the past. Continue current medical therapy. DO JUAN Bennett/MODL /[id number]
[2018-08-03] MEDS: ENOXAPARIN 30 MG/0.3 ML SYR SC SCH (18:45)
[2018-08-04] VITALS (7 sets, daily range): BP systolic 133–170; BP diastolic 63–75
[2018-08-04] MEDS: ALBUTEROL SULF 0.083% NEB SOLN 3 ML NEB NEB SCH ×6 (00:25→20:05)
[2018-08-04] MEDS: LEVOTHYROXINE SODIUM 75 MCG TAB PO SCH (05:09)
[2018-08-04] MEDS: CLINDAMYCIN 600MG / 50ML 50 ML IV SCH ×3 (05:09→18:03)
[2018-08-04] MEDS: IPRATROPIUM BROMIDE 0.02% 2.5 ML NEB NEB SCH ×3 (07:20→20:05)
[2018-08-04] MEDS: CARVEDILOL 40 MG CAPCR PO SCH (09:01)
[2018-08-04] MEDS: ALPRAZOLAM 0.25 MG TAB PO SCH (09:01)
[2018-08-04] MEDS: BUMETANIDE INJ 0.25MG/ML 4ML VIAL IV SCH (09:01)
[2018-08-04] MEDS: SERTRALINE HCL 50 MG TAB PO SCH (09:01)
[2018-08-04] MEDS: ISOSORBIDE MONONITRATE 20 MG TAB PO SCH (09:01)
[2018-08-04] MEDS: HYDRALAZINE HCL 10 MG TAB PO SCH ×3 (09:01→20:34)
[2018-08-04] MEDS: CEFTAROLINE FOSAMIL ACETATE 600 MG in SODIUM CHLORIDE 0.9% 250ML 250 ML IV SCH ×2 (10:27→20:34)
--- NOTE | 2018-08-04 10:58 | Progress Note ---
DATE: SUBJECTIVE: The patient is an 87-year-old lady who comes in with pneumonia and also acute renal failure. Patient is currently still wheezing in bed. Cough is persistent, started to have very watery diarrhea yesterday. C. difficile has been collected for. OBJECTIVE: VITAL SIGNS: Currently, temperature of 98.9, has been afebrile, blood pressure 149/67, pulse oximetry 95% on 2 L of oxygen. CVS: S1, S2 normal. Regular rate and rhythm. ABDOMEN: Nontender, nondistended. EXTREMITIES: No clubbing, no cyanosis, no edema. LABORATORY VALUES: None today. MICROBIOLOGY: No growth in blood cultures in the last 72 hours. ASSESSMENT: 1. Pneumonia. Continue with antibiotic. The patient has 3 antibiotics onboard including clindamycin for aspiration. 2. Aspiration precaution for aspiration. 3. Congestive heart failure. Continue on diuresis. 4. Acute on chronic kidney injury, better, baseline today. 5. Anemia, status post transfusion and Lovenox has been stopped. 6. Severe protein energy malnutrition. Continue with pureed diet. 7. History of cardiovascular accident. Continue to monitor the patient. Further recommendations and clinical course: A SNF order has been placed and also diarrhea, we will go ahead and do a C. difficile. The patient is a hard stick, might need a PICC line. This will be suggested to the daughter if agreeable to the PICC line. MD CAROLYN Joiner/MODL /[id number]
--- NOTE | 2018-08-04 16:20 | NUR ---
Visit made by the Spiritual Care Department Pastoral Visitor, Edinson Mac. Pt sleeping soundly. PV provided pastoral presence, hospitality, and supportive listening to pt's private caregiver. Pastoral Visitor informed caregiver of the scope of [employer] and availability. YUDY UGARTE [facility] Spiritual Care Department O: [phone] Pager: [phone] ([phone] number calling from)
[2018-08-04] MEDS: ENOXAPARIN 30 MG/0.3 ML SYR SC SCH (17:45)
[2018-08-05] MEDS: CLINDAMYCIN 600MG / 50ML 50 ML IV SCH ×4 (00:23→16:00)
[2018-08-05] MEDS: IPRATROPIUM BROMIDE 0.02% 2.5 ML NEB NEB SCH ×3 (00:25→11:00)
[2018-08-05 00:46] VITALS: BP 164/72
[2018-08-05] MEDS: ALBUTEROL SULF 0.083% NEB SOLN 3 ML NEB NEB SCH ×3 (04:15→11:00)
[2018-08-05] MEDS: HYDRALAZINE HCL 10 MG TAB PO SCH ×2 (04:18→16:00)
[2018-08-05 04:57] LABS: BASOPHILS # (AUTO) 0.1 (0.0-0.1); BASOPHILS % 0.7 % (0.0-1.0); EOSINOPHILS # (AUTO) 0.2 (0.0-0.4); EOSINOPHILS % 1.4 % (0.0-6.0); HEMATOCRIT 26.1 % (34.2-44.1); HEMOGLOBIN 8.1 g/dL (12.0-16.0); LYMPHOCYTES # (AUTO) 0.4 (1.0-3.2); LYMPHOCYTES % 3.8 % (18.0-39.1); MEAN CORPUSCULAR HEMOGLOBIN 29.9 pg (28-32); MEAN CORPUSCULAR VOLUME 96.3 fL (81-99); MONOCYTES # (AUTO) 0.8 (0.2-0.8); MONOCYTES % 8.1 % (4.4-11.3); NEUTROPHILS # (AUTO) 8.5 (2.1-6.9); NEUTROPHILS % 81.5 % (38.7-80.0); PLATELET COUNT 233 x10e3/uL (140-360); RED BLOOD COUNT 2.71 x10e6/uL (3.6-5.1); RED CELL DISTRIBUTION WIDTH 15.1 % (11.7-14.4)
[2018-08-05 05:15] LABS: ANION GAP 13.4 mmol/L (8-16); CALCIUM 8.4 mg/dL (8.4-10.2); CREATININE, SERUM 2.17 mg/dL (0.57-1.11); POTASSIUM 3.4 mmol/L (3.5-5.1)
[2018-08-05] MEDS: LEVOTHYROXINE SODIUM 75 MCG TAB PO SCH (05:19)
[2018-08-05 05:22] VITALS: BP 172/74
[2018-08-05] MEDS ORDERED: POTASSIUM CHLORIDE 20 MEQ TAB CR PO ONE (07:00)
[2018-08-05 08:05] VITALS: BP 181/81
[2018-08-05] MEDS ORDERED: SODIUM CHLORIDE 0.9% 250ML 250 ML ONE (08:15)
[2018-08-05] MEDS: CEFTAROLINE FOSAMIL ACETATE 600 MG in SODIUM CHLORIDE 0.9% 250ML 250 ML IV SCH (08:32)
[2018-08-05] MEDS: BUMETANIDE INJ 0.25MG/ML 4ML VIAL IV SCH ×2 (08:32→16:00)
[2018-08-05] MEDS: SERTRALINE HCL 50 MG TAB PO SCH (08:32)
[2018-08-05] MEDS: CARVEDILOL 40 MG CAPCR PO SCH (08:32)
[2018-08-05] MEDS: ISOSORBIDE MONONITRATE 20 MG TAB PO SCH (08:32)
[2018-08-05] MEDS: ALPRAZOLAM 0.25 MG TAB PO SCH (08:32)
--- NOTE | 2018-08-05 09:59 | NUR ---
Called and spoke with pt's daughter Ирина Doty. Explained IMM letter. She verbalized understanding. Signed Copy placed in chart. Copy to pt's bedside.
--- NOTE | 2018-08-05 10:12 | Progress Note ---
DATE: SUBJECTIVE: An 87-year-old female comes in with aspiration pneumonia. The patient is currently still coughing, congestion is better. Slept well. The patient had diarrhea yesterday. C difficile was negative. Currently afebrile and using O2. OBJECTIVE: VITAL SIGNS: Temperature is 98.0, pulse of 61, blood pressure is slightly elevated at 172/74, and pulse oximetry 95% on 3 L of oxygen. HEENT: Normocephalic and atraumatic. Pupils are reactive to light and accommodation. CVS: S1 and S2 normal. Regular rate and rhythm. ABDOMEN: Nontender and nondistended. LUNGS: Positive for rhonchi in bilateral lung post. EXTREMITIES: No clubbing, no cyanosis, and no edema. LABORATORY VALUES: Today; sodium is 141, potassium is 3.4, BUN 66, creatinine of 2.17, and GFR of 21. Hematology; white count is 10.3, hemoglobin of 8.1, hematocrit of 26.1, and neutrophil count is 81.5. Again, C difficile was negative. Microbiology, no growth after five days of blood cultures. ASSESSMENT: 1. Healthcare-acquired pneumonia. 2. Aspiration pneumonia. 3. Hypertension. 4. Hyperlipidemia. 5. Diabetes mellitus. 6. Blood loss anemia. 7. Do not resuscitate status. 8. Chronic obstructive pulmonary disease exacerbation. PLAN: Plan is to continue with the IV antibiotics. C difficile has been negative. The patient's family and the patient have been looking for SNF; as soon as the bed is available, the patient can be transferred. We will continue on her CV medications. Continue monitoring the patient and also replace electrolytes as needed. Further recommendation per clinical course. We will continue to monitor the patient. Again, the patient is DNR. MD CAROLYN Joiner/MODL /[id number]
--- NOTE | 2018-08-05 11:00 | NUR ---
RECEIVED CALL NEEDING PT NOTES FAXED TO [facility]. FAXED TO [phone]
[2018-08-05 12:00] VITALS: BP 182/71
[2018-08-05] MEDS ORDERED: HYDRALAZINE HCL 20 MG/ML VIAL IV PRN (12:00)
[2018-08-05 12:01] VITALS: BP 175/62
--- NOTE | 2018-08-05 12:01 | NUR ---
Dr.Patel Ramon aware of bp. see orders
--- NOTE | 2018-08-05 14:45 | NUR ---
Patient has been accepted to [facility]. Notified . aware of abnormal lung sound. Per "okay to transfer, notify of transfer"
--- NOTE | 2018-08-05 14:48 | NUR ---
Paged to notify of orders to transfer patient to [facility]
--- NOTE | 2018-08-05 15:00 | NUR ---
Ирина, patient's daughter aware patient will be transferred to [facility]. All personal belongings taken by daughter
--- NOTE | 2018-08-05 15:31 | NUR ---
covering for . Aware of transfer. States "okay to transfer"
--- NOTE | 2018-08-05 15:37 | NUR ---
Report called to [facility] and given Althea NIXN
--- NOTE | 2018-08-05 15:47 | NUR ---
PT ACCEPTED TO ROOM [address] CERDA AT [facility], [facility] COMPLETED FILED IN CHART WITH RTF GIVEN TO NURSE WITH COPY OF [facility] TO ACCOMPANY PT TO FACILITY.
[2018-08-05 16:00] VITALS: BP 143/65
[2018-08-05] MEDS: ACETAMINOPHEN 325 MG TAB PO PRN (16:00)
[2018-08-05] MEDS: ENOXAPARIN 30 MG/0.3 ML SYR SC SCH (16:00)
--- NOTE | 2018-08-05 16:38 | NUR ---
Taken via stretcher by [facility]. AAOX2 to person, place. Respirations even and unlabored. O2 3L NC. Left hand 22G IV clean,dry, and intact. Discharge package given to [facility].
--- NOTE | 2018-08-05 16:41 | NUR ---
Ирина, patient's daughter, aware of patient's transfer to [facility]
--- NOTE | 2018-08-05 17:19 | Progress Note ---
DATE: 08/05/2018 Cardiology Progress Note SUBJECTIVE: No major events overnight. OBJECTIVE: VITAL SIGNS: Temperature 96.7, pulse 62, respiratory rate 16, blood pressure 175/62, and saturating 95% on 3 L. GENERAL: Elderly female, in no acute distress. CARDIOVASCULAR: Regular rate and rhythm. No murmurs, rubs, or gallops. Palpable cardiac pulses. Palpable radial pulses. LUNGS: Clear to ausculation bilaterally. ABDOMEN: Soft, nontender, nondistended. NEURO and PSYCH: Alert and oriented. CARDIOVASCULAR MEDICATIONS: Reviewed. LABORATORY DATA: Reviewed. TELEMETRY DATA: Reviewed. This shows normal sinus rhythm. ASSESSMENT: 1. Pneumonia. 2. Acute on chronic systolic congestive heart failure. 3. Pulmonary hypertension. 4. Left bundle-branch block. 5. Hypertension. 6. Hyperlipidemia. 7. Diabetes. 8. History of cerebrovascular accident. RECOMMENDATIONS: Continue current antibiotic therapies per primary service. The patient and her family have declined invasive assessment of coronaries given systolic heart failure. We will continue to manage medically. Add p.r.n. IV hydralazine for hypertension. Thank you for this consult. We will continue to follow. MD SULAIMAN Ariza/PABLO /[id number]
[2018-08-05] MEDS ORDERED: ALBUTEROL SULF 0.083% NEB SOLN 3 ML NEB NEB SCH (19:00)
== END 2018-08-05 16:42 | DRG 177 ==
LOC: ER 07:16 → ERHOLD 10:30 → MED/SURG2 17:00
PROVIDERS: ADMIT Family Medicine; ATTEND Family Medicine
PROC: 30233N1 Transfusion of Nonautologous Red Blood Cells into Peripheral Vein, Percutaneous Approach (ICD-10-PCS; principal; 2018-08-01)
DX: J69.0 Pneumonitis due to inhalation of food and vomit (principal); J96.21 Acute and chronic respiratory failure with hypoxia; I50.23 Acute on chronic systolic (congestive) heart failure; E43 Unspecified severe protein-calorie malnutrition; I13.0 Hypertensive heart and chronic kidney disease with heart failure and stage 1 through stage 4 chronic kidney disease, or unspecified chronic kidney disease; N17.9 Acute kidney failure, unspecified; J44.1 Chronic obstructive pulmonary disease with (acute) exacerbation; J18.9 Pneumonia, unspecified organism; N18.9 Chronic kidney disease, unspecified; Z88.5 Allergy status to narcotic agent; Z82.49 Family history of ischemic heart disease and other diseases of the circulatory system; F03.90 Unspecified dementia, unspecified severity, without behavioral disturbance, psychotic disturbance, mood disturbance, and anxiety; E03.9 Hypothyroidism, unspecified; Z86.73 Personal history of transient ischemic attack (TIA), and cerebral infarction without residual deficits; E78.5 Hyperlipidemia, unspecified; Z79.82 Long term (current) use of aspirin; Z85.820 Personal history of malignant melanoma of skin; I44.7 Left bundle-branch block, unspecified; E11.22 Type 2 diabetes mellitus with diabetic chronic kidney disease; Z66 Do not resuscitate; R13.10 Dysphagia, unspecified; Z68.22 Body mass index [BMI] 22.0-22.9, adult; I27.20 Pulmonary hypertension, unspecified; D50.0 Iron deficiency anemia secondary to blood loss (chronic); R19.7 Diarrhea, unspecified
CPT/HCPCS: 36415; 36600; 71045; 74230; 76604; 80048; 80053; 81001; 82805; 82948; 83540; 83605; 83880; 84100; 84436; 84443; 84466; 84479; 84484; 85025; 85610; 85730; 86850; 86900; 86920; 87040; 87493; 93005; 93306; 94640; 97139; 99284; J0360; J0456; J0712; J1650; J1940; J3265; J3370; J7030; J7050; P9016